=== PATIENT | male | born 1935 | race Caucasian/White ===

== ENCOUNTER 2018-12-30 07:19 | Day surgery (SDC) | payer MEDICARE, BC ==
[2018-12-30] MEDS ORDERED: Sodium Chloride 0.9% 1,000 ML IV SCH (08:00)
[2018-12-30] MEDS ORDERED: fentaNYL 100 MCG/2 ML SDV ONE (08:38)
[2018-12-30] MEDS ORDERED: Propofol 200 MG/20 ML SDV ONE (08:38)
[2018-12-30 11:09] VITALS: BP 148/98
--- NOTE | 2018-12-30 13:19 | OR ---
DATE OF PROCEDURE: 12/30/2018 SURGEON: Eliel Martinez MD PROCEDURE: Esophagogastroduodenoscopy. FINDINGS: Mild inflammation at the GE junction. COMPLICATIONS: None. INSURANCE CLAIMS ANALYST: None. ANESTHESIA: MAC. PREOPERATIVE DIAGNOSIS: Dysphagia. POSTOPERATIVE DIAGNOSIS: Dysphagia. RISKS: Risks, benefits, alternatives, and limitations including, but not limited to infection, bleeding, and perforation were explained to the patient, who wished to proceed. PROCEDURE IN DETAIL: The patient was placed in left lateral decubitus position. The EGD scope was introduced and advanced atraumatically into the second part of the duodenum. The scope was brought back in the stomach and no evidence of ulceration, no duodenal ulcers, and no gastritis. The GE junction showed some mild inflammation with a single tongue-like lesion consistent with probable reflux. This was biopsied at that location and in all 4 quadrants. The remainder of the esophagus was normal. The patient tolerated the procedure well. Eliel Martinez MD /[id number]
== END 2018-12-30 10:40 | disposition home or self-care (01) ==
LOC: JP.SDS 07:19
PROVIDERS: ATTEND Surgery
DX: K20.9 Esophagitis, unspecified (principal); I10 Essential (primary) hypertension; I25.10 Atherosclerotic heart disease of native coronary artery without angina pectoris; R00.1 Bradycardia, unspecified; E66.9 Obesity, unspecified; Z68.33 Body mass index [BMI] 33.0-33.9, adult; Z79.02 Long term (current) use of antithrombotics/antiplatelets; Z79.82 Long term (current) use of aspirin
CPT/HCPCS: 43239; J2704; J3010; J7030

== ENCOUNTER 2019-02-15 06:49 | Day surgery (SDC) | payer MEDICARE, BC ==
[2019-02-15] MEDS ORDERED: Sodium Chloride 0.9% 1,000 ML IV SCH (07:30)
[2019-02-15] MEDS ORDERED: Propofol 200 MG/20 ML SDV ONE (08:11)
[2019-02-15 10:27] VITALS: BP 159/97; PULSE 59
--- NOTE | 2019-02-15 11:44 | OR ---
DATE OF PROCEDURE: 02/15/2019 SURGEON: Eliel Martinez MD PROCEDURE: Esophagogastroduodenoscopy with dilation. FINDINGS: 1. Inflammation at the GE junction, which has worsened since last scope (biopsied using cold biopsy forceps x6). 2. Hiatal hernia, small. COMPLICATIONS: None. HABITAT CONSERVATION PLANNER: None. ANESTHESIA: MAC. INDICATIONS: This is a pleasant 83-year-old male, who is having some dysphagia and concerns for esophageal outflow obstruction. The patient was counseled in the clinic, and his medications were also changed with respect to his proton pump inhibitor. The patient had selected esophagogastroduodenoscopy with dilation to see if this helps with his dysphagia. We discussed risks, benefits, alternatives, and limitations including infection, bleeding, and perforation. PROCEDURE IN DETAIL: The patient was placed in left lateral decubitus position. The scope was introduced and advanced atraumatically to second part of the duodenum. No evidence of duodenal ulcer or any abnormalities. Within the stomach proper, no evidence of gastritis or ulceration. The hernia was noted. The GE junction had slightly mild increased inflammation, therefore this was biopsied in all 4 quadrants. 36-Montserratian balloon was used to dilate this also. The remainder of esophagus was normal. The patient tolerated the procedure well. Eliel Martinez MD /[id number]
== END 2019-02-15 09:25 | disposition home or self-care (01) ==
LOC: JP.SDS 06:49
PROVIDERS: ATTEND Surgery
DX: K20.9 Esophagitis, unspecified (principal); K44.9 Diaphragmatic hernia without obstruction or gangrene; I10 Essential (primary) hypertension; I25.2 Old myocardial infarction; I25.10 Atherosclerotic heart disease of native coronary artery without angina pectoris; K21.9 Gastro-esophageal reflux disease without esophagitis; M48.00 Spinal stenosis, site unspecified; C20 Malignant neoplasm of rectum
CPT/HCPCS: 43249; 88305; J2704; J7030

== ENCOUNTER 2019-02-28 16:34 | Inpatient (IN) | payer MEDICARE, BC ==
--- NOTE | 2019-02-28 16:42 | EDM.PDOC ---
ED HPI GENERAL MEDICAL PROBLEM - General Stated Complaint: FELL OFF LADDER,10 FT FALL Time Seen by Provider: 02/28/19 16:34 Source of Information: Reports: Patient History Limitations: Reports: No Limitations - History of Present Illness INITIAL COMMENTS - FREE TEXT/NARRATIVE: 83-year-old male came in by private car after falling 8-10 feet off of a ladder. The ladder fell sideways, and he landed hard on his left side on the ground. He sustained instant pain in the left upper arm, and the left hip area. It knocked the wind out of him and he had difficulty breathing for several minutes, but managed to catch his breath. He then made it to the car and drove into the hospital. On arrival he looked pale and diaphoretic, was having pleuritic pain with breathing so was brought back in as a trauma code. He had no loss of consciousness or head injury. An IV was started immediately. Onset: Sudden Duration: Hour(s): (Within the last hour) Location: Reports: Chest, Upper Extremity, Left, Lower Extremity, Left Quality: Reports: Ache, Stabbing Severity: Moderate Worsens with: Reports: Movement Associated Symptoms: Reports: Chest Pain, Diaphoresis, Malaise, Other ( Pleuritic pain with breathing on the left side in the shoulder). Denies: Confusion, Cough, Nausea/Vomiting, Weakness left side (shoulder and leg) Pain Score (Numeric/FACES): 6 - Related Data Allergies Allergy/AdvReac Type Severity Reaction Status Date / Time No Known Allergies Allergy Verified 02/15/19 07:38 Home Meds: Home Meds Amitriptyline [Elavil] 25 mg PO BEDTIME 06/16/14 [History] Aspirin [Adult Low Dose Aspirin EC] 81 mg PO DAILY 06/16/14 [History] Baclofen 10 mg PO BID 06/16/14 [History] Calcium Carbonate/Vitamin D3 [Oyster Shell 500 mg + Vit D] 1 tab PO DAILY [History] Gabapentin 600 mg PO BID 06/16/14 [History] Lisinopril [Prinivil] 5 mg PO DAILY 06/16/14 [History] Omeprazole [Prilosec] 40 mg PO DAILY 06/16/14 [History] Triamcinolone Acetonide [Triamcinolone Acetonide 0.1% Crm] 1 cm TOP TID PRN 11/23 [History] Zolpidem [Ambien] 10 mg PO BEDTIME 06/16/14 [History] Clopidogrel [Plavix] 75 mg PO DAILY 12/29/18 [History] Ipratropium [Atrovent 0.06% Nasal [place]] 2 spray REYNA TID 12/29/18 [History] Metoprolol Succinate [Toprol Xl] 25 mg PO DAILY 12/29/18 [History] Multivitamin [Multi-Day Vitamins] 1 each PO DAILY 12/29/18 [History] Vitamin B Complex [B Complex] 1 each PO DAILY 12/29/18 [History] Budesonide/Formoterol [Symbicort 160-4.5 MCG] 2 inh INH BID 02/11/19 [History] Cetirizine [ZyrTEC] 10 mg PO DAILY 02/11/19 [History] Glucosamine/D3/Boswellia Ciara [Osteo Bi-Flex Caplet] 2 each PO BID 02/11/19 [ History] Ubidecarenone [Co Q-10] 200 mg PO DAILY 02/11/19 [History] Hydrocodone/Acetaminophen [Brooks 5-325 Tablet] 1 each PO Q4HR PRN #30 tablet [Rx] Past Medical History HEENT History: Reports: Allergic Rhinitis, Cataract, Hard of Hearing, Impaired Vision Cardiovascular History: Reports: Hypertension, [place] Respiratory History: Reports: Sleep Apnea Gastrointestinal History: Reports: Colon Polyp, GERD Musculoskeletal History: Reports: Arthritis, Fracture Endocrine/Metabolic History: Reports: Obesity/BMI 30+ Hematologic History: Reports: Anticoagulation Therapy, Blood Transfusion(s) Oncologic (Cancer) History: Reports: Colon, Other (See Below) Other Oncologic History: rectal - Infectious Disease History Infectious Disease History: Reports: Chicken Pox, Measles, Mumps - Past Surgical History HEENT Surgical History: Reports: Cataract Surgery, Tonsillectomy Cardiovascular Surgical History: Reports: Other (See Below) Other Cardiovascular Surgeries/Procedures: angioplasty Respiratory Surgical History: Reports: None GI Surgical History: Reports: Appendectomy, Colonoscopy, Other (See Below) Other GI Surgeries/Procedures: rectal cancer 5 years ago with low rectal surgery Endocrine Surgical History: Reports: None Musculoskeletal Surgical History: Reports: Arthroscopic Knee, Hip Replacement, Knee Replacement Oncologic Surgical History: Reports: Other (See Below) Other Oncologic Surgeries/Procedures: rectal surgery Social & Family History - Caffeine Use Caffeine Use: Reports: Coffee Review of Systems - Review of Systems Review Of Systems: See Below Constitutional: Denies: Fever Respiratory: Reports: Pleuritic Chest Pain. Denies: Shortness of Breath Cardiovascular: Reports: Chest Pain (Left upper chest area) Musculoskeletal: Reports: Arm Pain (Left upper arm pain) Skin: Denies: Bruising Neurological: Denies: Dizziness, Headache Psychiatric: Reports: No Symptoms ED EXAM, GENERAL - Physical Exam Exam: See Below Free Text/Narrative:: Primary assessment was normal, oxygen was normal, lungs clear, neuro intact and blood pressure and pulse normal. Exam Limited By: No Limitations General Appearance: Alert, Moderate Distress Eye Exam: Bilateral Eye: Normal Inspection Head: Atraumatic Neck: Supple, Non-Tender Respiratory/Chest: Lungs Clear Cardiovascular: Regular Rate, Rhythm, Other (Distant heart sounds) GI/Abdominal: Soft, Non-Tender Extremities: Other (Significant tenderness to palpation of the left upper arm and shoulder, clavicle nontender, elbow nontender area also pain with internal or external rotation of the left hip compared to the right but no shortening or rotation of the left leg.) Neurological: Alert, Oriented Psychiatric: Anxious Skin Exam: Warm, Dry Course - Vital Signs Last Recorded V/S: Last Vital Signs Temp 98.2 F 03/02/19 08:26 Pulse 86 03/02/19 08:26 Resp 18 03/02/19 08:26 BP 118/70 03/02/19 08:26 Pulse Ox 95 03/02/19 08:26 - Orders/Labs/Meds Labs: Laboratory Tests 02/28/19 02/28/19 Range/Units 16:40 16:40 WBC 7.7 (4.5-11.0) K/uL RBC 4.75 (4.30-5.90) M/uL Hgb 15.3 H D (12.0-15.0) g/dL Hct 45.9 (40.0-54.0) % MCV 97 (80-98) fL MCH 32 H (27-31) pg MCHC 33 (32-36) % Plt Count 137 L (150-400) K/uL Neut % (Auto) 53 (36-66) % Lymph % (Auto) 40 (24-44) % Leslie % (Auto) 6 (2-6) % Eos % (Auto) 1 L (2-4) % Baso % (Auto) 0 (0-1) % Sodium 141 (140-148) mmol/L Potassium 4.2 (3.6-5.2) mmol/L Chloride 106 (100-108) mmol/L Carbon Dioxide 24 (21-32) mmol/L Anion Gap 11.5 (5.0-14.0) mmol/L BUN 20 H (7-18) mg/dL Creatinine 1.2 (0.7-1.3) mg/dL Est Cr Clr Drug Dosing TNP Estimated GFR (MDRD) 58 L (>60) BUN/Creatinine Ratio Not Reportable Glucose 108 H (74-106) mg/dL Calcium 9.1 (8.5-10.1) mg/dL Total Bilirubin 0.3 D (0.2-1.0) mg/dL AST 30 (15-37) U/L ALT 41 (12-78) U/L Alkaline Phosphatase 85 (46-116) U/L Total Protein 6.9 (6.4-8.2) g/dL Albumin 3.5 (3.4-5.0) g/dL Globulin 3.4 (2.3-3.5) g/dL Albumin/Globulin Ratio 1.0 L (1.2-2.2) Meds: Medications Discontinued Medications Generic Name Dose Route Start Last Admin Trade Name Freq PRN Reason Stop Dose Admin Acetaminophen 650 mg 02/28/19 19:53 Tylenol PO Q4H PRN Pain (Mild 1-3)/fever Hydrocodone Bitart/Acetaminophen 1 tab 02/28/19 19:53 03/02/19 09:24 Brooks 325-5 Mg PO 1 tab Q4H PRN Administration Pain Albuterol 2.5 mg 02/28/19 19:53 Proventil Neb Soln NEB Q4H PRN Shortness Of Breath/wheezing Amitriptyline HCl 25 mg 02/28/19 21:00 03/01/19 21:02 Elavil PO 25 mg BEDTIME CICI Administration Aspirin 81 mg 03/01/19 09:00 03/02/19 11:12 Halfprin PO Not Given DAILY CICI Baclofen 10 mg 02/28/19 21:00 03/02/19 11:12 Lioresal PO Not Given BID CICI Cetirizine HCl 10 mg 03/01/19 09:00 03/02/19 11:13 Zyrtec PO Not Given DAILY [facility] Clopidogrel Bisulfate 75 mg 03/01/19 09:00 03/02/19 11:12 Plavix PO Not Given DAILY [facility] Enoxaparin Sodium 40 mg 03/01/19 09:00 03/02/19 11:12 Lovenox SUBCUT Not Given DAILY [facility] Gabapentin 600 mg 02/28/19 21:00 03/02/19 11:12 Neurontin PO Not Given BID CICI Sodium Chloride 1,000 mls @ 500 mls/hr 02/28/19 16:45 02/28/19 17:30 Normal Saline IV 500 mls/hr ASDIRECTED CIIC Administration Sodium Chloride 80 mls @ 3 mls/sec 02/28/19 17:00 02/28/19 17:16 Normal Saline IV 02/28/19 18:00 3 mls/sec ASDIRECTED CICI Administration Sodium Chloride 1,000 mls @ 125 mls/hr 02/28/19 19:53 03/01/19 14:01 Normal Saline IV 125 mls/hr ASDIRECTED CICI Administration Iopamidol 100 ml 02/28/19 17:00 02/28/19 17:17 Isovue-300 (61%) IV 02/28/19 18:00 100 ml . DIRECTED CICI Administration Ipratropium Keyser 0 ml 02/28/19 21:00 03/02/19 09:08 Atrovent 0.06% Nasal [place] REYNA Not Given TID [facility] Lisinopril 5 mg 03/01/19 09:00 03/02/19 11:12 Prinivil PO Not Given DAILY [facility] Metoprolol Succinate 25 mg 03/01/19 09:00 03/02/19 11:13 Toprol Xl PO Not Given DAILY [facility] Ondansetron HCl 4 mg 02/28/19 19:53 Zofran IV Q4H PRN Nausea/Vomiting Pantoprazole Sodium 40 mg 03/01/19 07:30 03/02/19 09:08 Protonix PO Not Given ACBREAKFAST [facility] Polyethylene Glycol 17 gm 02/28/19 19:53 Miralax PO DAILY PRN Constipation Fluticasone/Salmeterol 0 puff 02/28/19 21:00 02/28/19 21:14 Fluticasone-Salmeterol 232-14 Mcg Powder Inha INH Not Given BID CICI Fluticasone/Salmeterol 0 puff 03/01/19 07:30 03/02/19 07:19 Fluticasone-Salmeterol 232-14 Mcg Powder Inha INH 1 puff BIDRT CICI Administration Senna/Docusate Sodium 1 tab 02/28/19 21:00 03/02/19 11:12 Senna Plus PO Not Given BID CICI Sodium Chloride 10 ml 02/28/19 16:52 02/28/19 17:16 Saline Flush FLUSH 02/28/19 16:53 10 ml ONETIME ONE Administration Sodium Chloride 10 ml 02/28/19 19:53 Saline Flush FLUSH ASDIRECTED PRN Keep Vein Open Zolpidem Tartrate 10 mg 02/28/19 21:00 03/01/19 22:57 Ambien PO 10 mg BEDTIME CICI Administration - Re-Assessments/Exams Free Text/Narrative Re-Assessment/Exam: 02/28/19 17:43 Patient declined any pain control initially. Ultrasound of the abdomen showed no fluid or obvious abnormality. CBC CMP were obtained and the patient was sent back for a chest abdomen pelvis CT scan with IV contrast, trauma protocol after his creatinine returned 1.1. 02/28/19 18:24 Labs were reassuring, CBC showed a normal white count and hemoglobin. LFTs were normal. CT scan confirmed a pelvic ramus fracture, but no other acute abnormalities of the chest and pelvis. A left shoulder immobilizer was applied and the patient tried to stand and move to a chair and became very uncomfortable , pale unsteady so agreed to be in the hospital for the next day or 2 for observation. Departure - Departure Time of Disposition: 19:41 Disposition: Admitted As Inpatient 65 Clinical Impression: Closed left humeral fracture Qualifiers: Encounter type: initial encounter Humerus Location: surgical neck Fracture morphology: unspecified fracture morphology Fracture alignment: displaced Qualified Code(s): S42.212A - Unspecified displaced fracture of surgical neck of left humerus, initial encounter for closed fracture Closed fracture of single pubic ramus of pelvis Qualifiers: Encounter type: initial encounter Laterality: left Qualified Code(s): S32.592A - Other specified fracture of left pubis, initial encounter for closed fracture - Discharge Information
[2019-02-28] MEDS ORDERED: Sodium Chloride 0.9% 1,000 ML IV SCH (16:45)
[2019-02-28] MEDS ORDERED: Sodium Chloride 0.9% 10 ML Syringe FLUSH ONE (16:52)
[2019-02-28] MEDS ORDERED: Sodium Chloride 0.9% 80 ML IV SCH (17:00)
[2019-02-28] MEDS ORDERED: Iopamidol 612 MG/ML 100 ML Bottle IV SCH (17:00)
--- NOTE | 2019-02-28 17:31 | CRLCR ---
INDICATION: Fall, humerus pain TECHNIQUE: Humerus radiograph 1 view left COMPARISON: None FINDINGS: Bone: There is a comminuted, mildly displaced fracture of the surgical neck of the left humerus. The distal fragment is displaced laterally by 1 cm. Joint: The visualized glenohumeral and elbow joints are unremarkable, but the elbow joint is not profiled. If there is pain or tenderness in this region, dedicated views of the elbow are recommended. Soft tissue: The visualized hemithorax and soft tissues are unremarkable in appearance. No radiopaque foreign bodies are seen. IMPRESSIONS: 1. There is a comminuted, mildly displaced fracture of the surgical neck of the left humerus. 2. Complete radiographic assessment will require at least an additional orthogonal view. Dictated by Keron Goodman MD @ 02/28/2019 5:29:04 PM Dictated by: Keron Goodman MD @ 02/28/2019 17:29:07 (Electronically Signed)
--- NOTE | 2019-02-28 18:22 | CRLCT ---
HISTORY: Fall. Pain. TECHNIQUE: CT chest, abdomen, and pelvis with IV contrast. COMPARISON: None. FINDINGS: Chest: Lungs: Central airways are patent. No consolidation or edema. Minimal dependent atelectasis in the right lung. Minimal atelectasis in the paramediastinal left lower lobe. 5 mm noncalcified pulmonary nodule in the left lower lobe along the major fissure (series 3 image 53). No pleural effusion or pneumothorax. Mediastinum: Moderate aortic atherosclerosis. Ascending thoracic aorta is mildly dilated to 3.8 cm. No pericardial effusion. Lymph nodes: No enlarged lymph nodes. --- Abdomen: No liver lesions. No bile duct dilation. No pancreatic mass or pancreatic duct dilation. No acute pancreatic injury. Subcentimeter hypodense lesion in the inferior spleen is too small to characterize. No acute spleen injury. No adrenal nodules. Kidneys enhance symmetrically. No renal mass. No acute renal parenchymal injury. No hydronephrosis. No dilated bowel. Mild colonic diverticulosis. No free fluid. No free intraperitoneal gas. No lymphadenopathy. Moderate atherosclerosis. Abdominal aorta is normal caliber. Pelvis: Partially obscured by artifact from bilateral hip arthroplasty hardware. No lymphadenopathy. --- Musculoskeletal: Degenerative arthrosis of both sternoclavicular joints. Degenerative changes of the spine. Nondisplaced acute fracture of the left inferior pubic ramus. Nondisplaced fracture at the junction of the left superior pubic ramus and anterior acetabulum. Total hip arthroplasty bilaterally. IMPRESSION: 1. Nondisplaced acute fractures of the left inferior pubic ramus and at the junction of the left superior pubic ramus and anterior acetabulum. 2. No acute abnormality in the chest, abdomen, or pelvis otherwise. 3. 5 mm pulmonary nodule in the left lower lobe. If patient is at high risk for malignancy consider follow-up chest CT in 12 months. Dictated by Mykel Rangel MD @ 02/28/2019 6:19:19 PM Please note that all CT scans at this facility use dose modulation, iterative reconstruction, and/or weight-based dosing when appropriate to reduce radiation dose to as low as reasonably achievable. Dictated by: Mykel Rangel MD @ 02/28/2019 18:19:26 (Electronically Signed)
--- NOTE | 2019-02-28 18:58 | PCM.HP.2 ---
H&P History of Present Illness - General Date of Service: 02/28/19 Admit Problem/Dx: Admission Diagnosis/Problem Admission Diagnosis/Problem Fracture of proximal humerus Source of Information: Patient, Family, Provider, RN Notes Reviewed History Limitations: Reports: No Limitations - History of Present Illness Initial Comments - Free Text/Narative: Mr. Ascencio is an 83-year-old gentleman who was admitted through the emergency department with left arm and hip pain following a fall of 10 feet off of a ladder. He was feeling well prior to the fall and was able to drive himself into the hospital. On evaluation he is found to have a proximal fracture of his left humerus, mildly displaced. As well as a fracture of his left inferior pubic rami. Because of the combination of the 2 fractures she is unsafe for discharge and will be admitted to the hospital for further evaluation and management. - Related Data Allergies/Adverse Reactions: Allergies Allergy/AdvReac Type Severity Reaction Status Date / Time No Known Allergies Allergy Verified 02/15/19 07:38 Home Medications: Home Meds Amitriptyline [Elavil] 25 mg PO BEDTIME 06/16/14 [History] Aspirin [Adult Low Dose Aspirin EC] 81 mg PO DAILY 06/16/14 [History] Baclofen 10 mg PO BID 06/16/14 [History] Calcium Carbonate/Vitamin D3 [Oyster Shell 500 mg + Vit D] 1 tab PO DAILY [History] Gabapentin 600 mg PO BID 06/16/14 [History] Lisinopril [Prinivil] 5 mg PO DAILY 06/16/14 [History] Omeprazole [Prilosec] 40 mg PO DAILY 06/16/14 [History] Triamcinolone Acetonide [Triamcinolone Acetonide 0.1% Crm] 1 cm TOP TID PRN 11/23 [History] Zolpidem [Ambien] 10 mg PO BEDTIME 06/16/14 [History] Clopidogrel [Plavix] 75 mg PO DAILY 12/29/18 [History] Ipratropium [Atrovent 0.06% Nasal [place]] 2 spray REYNA TID 12/29/18 [History] Metoprolol Succinate [Toprol Xl] 25 mg PO DAILY 12/29/18 [History] Multivitamin [Multi-Day Vitamins] 1 each PO DAILY 12/29/18 [History] Vitamin B Complex [B Complex] 1 each PO DAILY 12/29/18 [History] Budesonide/Formoterol [Symbicort 160-4.5 MCG] 2 inh INH BID 02/11/19 [History] Cetirizine [ZyrTEC] 10 mg PO DAILY 02/11/19 [History] Glucosamine/D3/Boswellia Ciara [Osteo Bi-Flex Caplet] 2 each PO DAILY 02/11/19 [ History] Hydrocodone/Acetaminophen [Drasco 5-325 Tablet] 1 each PO Q4HR PRN 02/11/19 [ History] Ubidecarenone [Co Q-10] 200 mg PO DAILY 02/11/19 [History] Past Medical History HEENT History: Reports: Allergic Rhinitis, Cataract, Hard of Hearing, Impaired Vision Cardiovascular History: Reports: Hypertension, [place] Respiratory History: Reports: Sleep Apnea Gastrointestinal History: Reports: Colon Polyp, GERD Musculoskeletal History: Reports: Arthritis, Fracture Endocrine/Metabolic History: Reports: Obesity/BMI 30+ Hematologic History: Reports: Anticoagulation Therapy, Blood Transfusion(s) Oncologic (Cancer) History: Reports: Colon, Other (See Below) Other Oncologic History: rectal - Infectious Disease History Infectious Disease History: Reports: Chicken Pox, Measles, Mumps - Past Surgical History HEENT Surgical History: Reports: Cataract Surgery, Tonsillectomy Cardiovascular Surgical History: Reports: Other (See Below) Other Cardiovascular Surgeries/Procedures: angioplasty Respiratory Surgical History: Reports: None GI Surgical History: Reports: Appendectomy, Colonoscopy, Other (See Below) Other GI Surgeries/Procedures: rectal cancer 5 years ago with low rectal surgery Endocrine Surgical History: Reports: None Musculoskeletal Surgical History: Reports: Arthroscopic Knee, Hip Replacement, Knee Replacement Oncologic Surgical History: Reports: Other (See Below) Other Oncologic Surgeries/Procedures: rectal surgery Social & Family History - Tobacco Use Smoking Status *Q: Never Smoker - Caffeine Use Caffeine Use: Reports: Coffee H&P Review of Systems - Review of Systems: Review Of Systems: See Below General: Reports: No Symptoms HEENT: Reports: No Symptoms Pulmonary: Reports: No Symptoms Cardiovascular: Reports: No Symptoms Gastrointestinal: Reports: No Symptoms Genitourinary: Reports: No Symptoms Musculoskeletal: Reports: Arm Pain, Other (Pelvic pain) Skin: Reports: No Symptoms Psychiatric: Reports: No Symptoms Neurological: Reports: No Symptoms Hematologic/Lymphatic: Reports: No Symptoms Immunologic: Reports: No Symptoms Exam - Exam Exam: See Below - Vital Signs Vital Signs: Last Vital Signs Temp 96.8 F 02/28/19 16:34 Pulse 89 02/28/19 18:39 Resp 19 02/28/19 17:25 BP 139/72 02/28/19 18:39 Pulse Ox 94 L 02/28/19 18:39 Weight: 212 lb - Exam General: Alert, Oriented, Cooperative, Moderate Distress HEENT: Conjunctiva Clear, Hearing Intact, Mucosa Moist & [place], Normal Nasal Septum, Posterior Pharynx Clear Neck: Supple, Trachea Midline, +2 Carotid Pulse wo Bruit Lungs: Clear to Auscultation, Normal Respiratory Effort Cardiovascular: Regular Rate, Regular Rhythm, Normal S1, Normal S2. No: Systolic Murmur, Diastolic Murmur GI/Abdominal Exam: Soft, Non-Tender, No Organomegaly, No Distention Extremities: Arm Pain (Left upper extremity is in a shoulder immobilizer), Other (Left pelvic pain) Skin: Warm, Dry, Intact Neurological: Cranial Nerves Intact, Strength Equal Bilateral, Normal Speech, Normal Tone, Sensation Intact. No: Focal Deficit Neuro Extensive - Mental Status: Alert, Oriented x3, Normal Mood/Affect, Normal Cognition, Memory Intact - Patient Data Lab Results Last 24 hrs: Laboratory Results - last 24 hr 02/28/19 02/28/19 Range/Units 16:40 16:40 WBC 7.7 (4.5-11.0) K/uL RBC 4.75 (4.30-5.90) M/uL Hgb 15.3 H D (12.0-15.0) g/dL Hct 45.9 (40.0-54.0) % MCV 97 (80-98) fL MCH 32 H (27-31) pg MCHC 33 (32-36) % Plt Count 137 L (150-400) K/uL Neut % (Auto) 53 (36-66) % Lymph % (Auto) 40 (24-44) % [place] % (Auto) 6 (2-6) % Eos % (Auto) 1 L (2-4) % Baso % (Auto) 0 (0-1) % Sodium 141 (140-148) mmol/L Potassium 4.2 (3.6-5.2) mmol/L Chloride 106 (100-108) mmol/L Carbon Dioxide 24 (21-32) mmol/L Anion Gap 11.5 (5.0-14.0) mmol/L BUN 20 H (7-18) mg/dL Creatinine 1.2 (0.7-1.3) mg/dL Est Cr Clr Drug Dosing TNP Estimated GFR (MDRD) 58 L (>60) BUN/Creatinine Ratio Not Reportable Glucose 108 H (74-106) mg/dL Calcium 9.1 (8.5-10.1) mg/dL Total Bilirubin 0.3 D (0.2-1.0) mg/dL AST 30 (15-37) U/L ALT 41 (12-78) U/L Alkaline Phosphatase 85 (46-116) U/L Total Protein 6.9 (6.4-8.2) g/dL Albumin 3.5 (3.4-5.0) g/dL Globulin 3.4 (2.3-3.5) g/dL Albumin/Globulin Ratio 1.0 L (1.2-2.2) Result Diagrams: 02/28/19 16:40 02/28/19 16:40 *Q Meaningful Use (ADM) - VTE Risk Assess *Q Each Risk Factor Represents 1 Point: Obesity ( BMI > 25 kg/m2) Total Score 1 Point Risk Factors: 1 Each Risk Factor Represents 2 Points: None Total Score 2 Point Risk Factors: 0 Each Risk Factor Represents 3 Points: Age 75 Years or Greater Total Score 3 Point Risk Factors: 3 Each Risk Factor Represents 5 Points: Hip, Pelvis or Leg Fracture, Less than 1 month Total Score 5 Point Risk Factors: 5 Venous Thromboembolism Risk Factor Score *Q: 9 Problem List Initiated/Reviewed/Updated: Yes Orders Last 24hrs: Active Orders 24 hr Category Date Time Status Patient Status Manage Transfer [TRANSFER] Routine ADT 02/28/19 18:48 Ordered Sodium Chloride 0.9% [Normal Saline] 1,000 ml Med 02/28/19 16:45 Active IV ASDIRECTED Resuscitation Status Routine Resus Stat 02/28/19 18:52 Ordered Medication Orders Sodium Chloride (Normal Saline) 1,000 mls @ 500 mls/hr IV ASDIRECTED [facility] Last Admin: 02/28/19 17:30 Dose: 500 mls/hr Assessment/Plan Comment:: ASSESSMENT AND PLAN LEFT PROXIMAL HUMERUS FRACTURE-experience from a fall earlier today. No indication for surgical intervention. -Pain medication as needed -Outpatient follow-up with orthopedic surgery -Will likely require long term placement LEFT INFERIOR PUBIC RAMI FRACTURE -Management as above MAINTENANCE ISSUES -DVT prophylaxis; Lovenox 40 mg subcutaneous daily -GI prophylaxis; continue outpatient PPI therapy -[place] catheter; not indicated -Nutrition; 2 g sodium diet -Nicotine dependence; not required CODE STATUS-FULL CODE ADMISSION STATUS-patient will be admitted to inpatient status, expect at least a 2 night hospital stay for evaluation and management of problems as outlined above. At the time of this admission I do not reasonably expected evaluation and management of this problem will require more than a 96 hour hospital stay. DISPOSITION-anticipate discharge to home after the hospital stay. PRIMARY CARE PROVIDER- - Mortality Measure Prognosis:: Good
[2019-02-28] MEDS ORDERED: Polyethylene Glycol 3350 Powder 17 GM Packet PO PRN (19:53)
[2019-02-28] MEDS ORDERED: Sodium Chloride 0.9% 10 ML Syringe FLUSH PRN (19:53)
[2019-02-28] MEDS ORDERED: Acetaminophen 325 MG Tab PO PRN (19:53)
[2019-02-28] MEDS ORDERED: Ondansetron 4 MG/2 ML SDV IV PRN (19:53)
[2019-02-28] MEDS ORDERED: Albuterol 0.083% 2.5 MG/3 ML Neb Soln NEB PRN (19:53)
[2019-02-28] MEDS ORDERED: Fluticasone-Salmeterol 232-14 MCG Powder Inhalent INH SCH (21:00)
[2019-02-28] MEDS: Sodium Chloride 0.9% 1,000 ML IV SCH (21:08)
[2019-02-28] MEDS: Acetaminophen/HYDROcodone 325-5 MG Tab PO PRN (21:13)
[2019-02-28] MEDS: Baclofen 10 MG Tab PO SCH (21:13)
[2019-02-28] MEDS: Gabapentin 300 MG Cap PO SCH (21:13)
[2019-02-28] MEDS: Ipratropium 0.06% Nasal Spray 15 ML Bottle NAS SCH (21:14)
[2019-02-28] MEDS: Amitriptyline 25 MG Tab PO SCH (21:15)
[2019-02-28] MEDS: Zolpidem 5 MG Tab PO SCH (23:09)
[2019-03-01] MEDS: Sodium Chloride 0.9% 1,000 ML IV SCH ×2 (05:12→14:01)
[2019-03-01] MEDS: Acetaminophen/HYDROcodone 325-5 MG Tab PO PRN ×4 (05:23→21:08)
[2019-03-01] MEDS: Fluticasone-Salmeterol 232-14 MCG Powder Inhalent INH SCH ×2 (08:24→21:02)
[2019-03-01] MEDS: Enoxaparin 40 MG/0.4 ML Syringe SUBCUT SCH (09:07)
[2019-03-01] MEDS: Metoprolol Succinate 25 MG Tab.ER PO SCH (09:07)
[2019-03-01] MEDS: Pantoprazole 40 MG Tab.CR PO SCH (09:10)
[2019-03-01] MEDS: Aspirin 81 MG Tab.EC PO SCH (09:10)
[2019-03-01] MEDS: Gabapentin 300 MG Cap PO SCH ×2 (09:10→21:01)
[2019-03-01] MEDS: Baclofen 10 MG Tab PO SCH ×2 (09:10→21:01)
[2019-03-01] MEDS: Lisinopril 5 MG Tab PO SCH (09:11)
[2019-03-01] MEDS: Ipratropium 0.06% Nasal Spray 15 ML Bottle NAS SCH ×3 (09:11→21:01)
[2019-03-01] MEDS: Cetirizine 10 MG Tab PO SCH (09:11)
[2019-03-01] MEDS: Clopidogrel 75 MG Tab PO SCH (09:11)
--- NOTE | 2019-03-01 14:46 | PCM.PN ---
- General Info Date of Service: 03/01/19 Subjective Update: Mr. Richards done well since admission, with assistance he is able to get up out of the chair and ambulate short distances. He is adamant about not going to the [place] [facility], plans to go home with his daughter tomorrow. Functional Status: Reports: Tolerating Diet, Ambulating - Review of Systems General: Reports: Weakness. Denies: Fever, Chills Pulmonary: Reports: No Symptoms Cardiovascular: Reports: No Symptoms Gastrointestinal: Reports: No Symptoms Musculoskeletal: Reports: Other (pain left arm and left pelvis) - Patient Data Vitals - Most Recent: Last Vital Signs Temp 98.7 F 03/01/19 12:06 Pulse 89 03/01/19 12:06 Resp 16 03/01/19 12:06 BP 115/71 03/01/19 12:06 Pulse Ox 92 L 03/01/19 12:06 Weight - Most Recent: 212 lb 15.994 oz I&O - Last 24 Hours: Intake & Output 02/28/19 03/01/19 03/01/19 22:59 06:59 14:59 Intake Total 500 1343 240 Output Total 200 675 Balance 300 668 240 Lab Results Last 24 Hours: Laboratory Results - last 24 hr 02/28/19 02/28/19 03/01/19 Range/Units 16:40 16:40 04:50 WBC 7.7 5.1 (4.5-11.0) K/uL RBC 4.75 3.93 L (4.30-5.90) M/uL Hgb 15.3 H D 12.6 D (12.0-15.0) g/dL Hct 45.9 38.7 L (40.0-54.0) % MCV 97 99 H (80-98) fL MCH 32 H 32 H (27-31) pg MCHC 33 33 (32-36) % Plt Count 137 L 150 (150-400) K/uL Neut % (Auto) 53 66 (36-66) % Lymph % (Auto) 40 22 L (24-44) % [place] % (Auto) 6 12 H (2-6) % Eos % (Auto) 1 L 0 L (2-4) % Baso % (Auto) 0 0 (0-1) % Sodium 141 (140-148) mmol/L Potassium 4.2 (3.6-5.2) mmol/L Chloride 106 (100-108) mmol/L Carbon Dioxide 24 (21-32) mmol/L Anion Gap 11.5 (5.0-14.0) mmol/L BUN 20 H (7-18) mg/dL Creatinine 1.2 (0.7-1.3) mg/dL Est Cr Clr Drug Dosing TNP Estimated GFR (MDRD) 58 L (>60) BUN/Creatinine Ratio Not Reportable Glucose 108 H (74-106) mg/dL Calcium 9.1 (8.5-10.1) mg/dL Total Bilirubin 0.3 D (0.2-1.0) mg/dL AST 30 (15-37) U/L ALT 41 (12-78) U/L Alkaline Phosphatase 85 (46-116) U/L Total Protein 6.9 (6.4-8.2) g/dL Albumin 3.5 (3.4-5.0) g/dL Globulin 3.4 (2.3-3.5) g/dL Albumin/Globulin Ratio 1.0 L (1.2-2.2) 03/01/19 Range/Units 04:50 WBC (4.5-11.0) K/uL RBC (4.30-5.90) M/uL Hgb (12.0-15.0) g/dL Hct (40.0-54.0) % MCV (80-98) fL MCH (27-31) pg MCHC (32-36) % Plt Count (150-400) K/uL Neut % (Auto) (36-66) % Lymph % (Auto) (24-44) % [place] % (Auto) (2-6) % Eos % (Auto) (2-4) % Baso % (Auto) (0-1) % Sodium 140 (140-148) mmol/L Potassium 4.2 (3.6-5.2) mmol/L Chloride 106 (100-108) mmol/L Carbon Dioxide 24 (21-32) mmol/L Anion Gap 9.7 (5.0-14.0) mmol/L BUN 17 (7-18) mg/dL Creatinine 1.1 (0.7-1.3) mg/dL Est Cr Clr Drug Dosing 45.11 Estimated GFR (MDRD) > 60 (>60) BUN/Creatinine Ratio Glucose 116 H (74-106) mg/dL Calcium 8.5 (8.5-10.1) mg/dL Total Bilirubin (0.2-1.0) mg/dL AST (15-37) U/L ALT (12-78) U/L Alkaline Phosphatase (46-116) U/L Total Protein (6.4-8.2) g/dL Albumin (3.4-5.0) g/dL Globulin (2.3-3.5) g/dL Albumin/Globulin Ratio (1.2-2.2) Med Orders - Current: Current Medications Acetaminophen (Tylenol) 650 mg PO Q4H PRN PRN Reason: Pain (Mild 1-3)/fever Hydrocodone Bitart/Acetaminophen ([place] 325-5 Mg) 1 tab PO Q4H PRN PRN Reason: Pain Last Admin: 03/01/19 09:16 Dose: 1 tab Albuterol (Proventil Neb Soln) 2.5 mg NEB Q4H PRN PRN Reason: Shortness Of Breath/wheezing Amitriptyline HCl (Elavil) 25 mg PO BEDTIME [facility] Last Admin: 02/28/19 21:15 Dose: Not Given Aspirin (Halfprin) 81 mg PO DAILY [facility] Last Admin: 03/01/19 09:10 Dose: 81 mg Baclofen (Lioresal) 10 mg PO BID [facility] Last Admin: 03/01/19 09:10 Dose: 10 mg Cetirizine HCl (Zyrtec) 10 mg PO DAILY [facility] Last Admin: 03/01/19 09:11 Dose: 10 mg Clopidogrel Bisulfate (Plavix) 75 mg PO DAILY [facility] Last Admin: 03/01/19 09:11 Dose: 75 mg Enoxaparin Sodium (Lovenox) 40 mg SUBCUT DAILY [facility] Last Admin: 03/01/19 09:07 Dose: 40 mg Gabapentin (Neurontin) 600 mg PO BID [facility] Last Admin: 03/01/19 09:10 Dose: 600 mg Ipratropium [place] (Atrovent 0.06% Nasal [place]) 0 ml REYNA TID [facility] Last Admin: 03/01/19 14:00 Dose: Not Given Lisinopril (Prinivil) 5 mg PO DAILY [facility] Last Admin: 03/01/19 09:11 Dose: 5 mg Metoprolol Succinate (Toprol Xl) 25 mg PO DAILY [facility] Last Admin: 03/01/19 09:07 Dose: 25 mg Ondansetron HCl (Zofran) 4 mg IV Q4H PRN PRN Reason: Nausea/Vomiting Pantoprazole Sodium (Protonix) 40 mg PO ACBREAKFAST [facility] Last Admin: 03/01/19 09:10 Dose: 40 mg Polyethylene Glycol (Miralax) 17 gm PO DAILY PRN PRN Reason: Constipation Fluticasone/Salmeterol (Fluticasone-Salmeterol 232-14 Mcg Powder [place]) 0 puff INH BIDRT [facility] Last Admin: 03/01/19 08:24 Dose: 1 puff Senna/Docusate Sodium (Senna Plus) 1 tab PO BID [facility] Last Admin: 03/01/19 09:10 Dose: 1 tab Sodium Chloride (Saline Flush) 10 ml FLUSH ASDIRECTED PRN PRN Reason: Keep Vein Open Zolpidem Tartrate (Ambien) 10 mg PO BEDTIME [facility] Last Admin: 02/28/19 23:09 Dose: 10 mg Discontinued Medications Sodium Chloride (Normal Saline) 1,000 mls @ 500 mls/hr IV ASDIRECTED [facility] Last Admin: 02/28/19 17:30 Dose: 500 mls/hr Sodium Chloride (Normal Saline) 80 mls @ 3 mls/sec IV ASDIRECTED [facility] Stop: 02/28/19 18:00 Last Admin: 02/28/19 17:16 Dose: 3 mls/sec Sodium Chloride (Normal Saline) 1,000 mls @ 125 mls/hr IV ASDIRECTED [facility] Last Admin: 03/01/19 14:01 Dose: 125 mls/hr Iopamidol (Isovue-300 (61%)) 100 ml IV . DIRECTED [facility] Stop: 02/28/19 18:00 Last Admin: 02/28/19 17:17 Dose: 100 ml Fluticasone/Salmeterol (Fluticasone-Salmeterol 232-14 Mcg Powder [place]ha) 0 puff INH BID [facility] Last Admin: 02/28/19 21:14 Dose: Not Given Sodium Chloride (Saline Flush) 10 ml FLUSH ONETIME ONE Stop: 02/28/19 16:53 Last Admin: 02/28/19 17:16 Dose: 10 ml - Exam Quality Assessment: DVT Prophylaxis General: Alert, Oriented, Cooperative, Moderate Distress Lungs: Clear to Auscultation, Normal Respiratory Effort Cardiovascular: Regular Rate, Regular Rhythm, No Murmurs GI/Abdominal Exam: Soft, Non-Tender, No Organomegaly, No Distention Extremities: Arm Pain, Other (left pelvic pain) - Problem List Review Problem List Initiated/Reviewed/Updated: Yes - My Orders Last 24 Hours: My Active Orders 02/28/19 18:52 Resuscitation Status Routine 02/28/19 19:53 Patient Status [ADT] Routine Ambulate [RC] QID Height and Weight [RC] 0500 Intake and Output [RC] QSHIFT Notify Provider Vital Signs [RC] ASDIRECTED Oxygen Therapy [RC] PRN RT Aerosol Therapy [RC] ASDIRECTED Up With Assistance [RC] ASDIRECTED Up to Chair [RC] QID VTE/DVT Education [RC] Per Unit Routine Vital Signs [RC] Q4H PT Evaluation and Treatment [CONS] Routine Acetaminophen [Tylenol] 650 mg PO Q4H PRN Acetaminophen/HYDROcodone [[place] 325-5 MG] 1 tab PO Q4H PRN Albuterol [Proventil Neb Soln] 2.5 mg NEB Q4H PRN Ondansetron [Zofran] 4 mg IV Q4H PRN Polyethylene Glycol 3350 [MiraLAX] 17 gm PO DAILY PRN Sodium Chloride 0.9% [Saline Flush] 10 ml FLUSH ASDIRECTED PRN Peripheral IV Insertion Adult [OM.PC] Routine 02/28/19 21:00 Amitriptyline [Elavil] 25 mg PO BEDTIME Baclofen [Lioresal] 10 mg PO BID Docusate Sodium/Sennosides [Senna Plus] 1 tab PO BID Gabapentin [Neurontin] 600 mg PO BID Ipratropium [Atrovent 0.06% Nasal [place]] 0 ml REYNA TID Zolpidem [Ambien] 10 mg PO BEDTIME 02/28/19 Dinner 2 Gram Sodium Diet [DIET] 03/01/19 07:30 Fluticasone/Salmeterol [Fluticasone-Salmeterol 232-14 MCG Powder Inha] 0 puff INH BIDRT Pantoprazole [ProTONIX] 40 mg PO ACBREAKFAST 03/01/19 09:00 Aspirin [Halfprin] 81 mg PO DAILY Cetirizine [ZyrTEC] 10 mg PO DAILY Clopidogrel [Plavix] 75 mg PO DAILY Enoxaparin [Lovenox] 40 mg SUBCUT DAILY Lisinopril [Prinivil] 5 mg PO DAILY Metoprolol Succinate [Toprol XL] 25 mg PO DAILY 03/01/19 14:40 Convert IV to Saline Lock [OM.PC] Routine - Plan Plan:: ASSESSMENT AND PLAN LEFT PROXIMAL HUMERUS FRACTURE-experience from a fall . No indication for surgical intervention. -Pain medication as needed -Outpatient follow-up with orthopedic surgery -ref[place] [facility] LEFT INFERIOR PUBIC RAMI FRACTURE -Management as above -weightbearing as tolerated MAINTENANCE ISSUES -DVT prophylaxis; Lovenox 40 mg subcutaneous daily -GI prophylaxis; continue outpatient PPI therapy -[place] catheter; not indicated -Nutrition; 2 g sodium diet -Nicotine dependence; not required CODE STATUS-FULL CODE ADMISSION STATUS-patient will be admitted to inpatient status, expect at least a 2 night hospital stay for evaluation and management of problems as outlined above. At the time of this admission I do not reasonably expected evaluation and management of this problem will require more than a 96 hour hospital stay. DISPOSITION-anticipate discharge to home after the hospital stay. PRIMARY CARE PROVIDER-
[2019-03-01] MEDS: Amitriptyline 25 MG Tab PO SCH (21:02)
[2019-03-01] MEDS: Zolpidem 5 MG Tab PO SCH (22:57)
[2019-03-02] MEDS: Fluticasone-Salmeterol 232-14 MCG Powder Inhalent INH SCH (07:19)
[2019-03-02 08:27] VITALS: BP 118/70
--- NOTE | 2019-03-02 09:01 | PCM.DCSUM1 ---
Discharge Summary - Hospital Course Brief History: Mr. Ascencio is an 83-year-old gentleman who was admitted through the emergency department with acute fractures of his left humerus and left inferior pubic ramus. - Discharge Data Discharge Date: 03/02/19 Discharge Disposition: Home, W Home Health Agency 06 Condition: Fair - Discharge Diagnosis/Problem(s) (1) Closed left humeral fracture SNOMED Code(s): 67663374 ICD Code: S42.302A - UNSP FRACTURE OF SHAFT OF HUMERUS, LEFT ARM, INIT Status: Acute Current Visit: Yes Qualifiers: Encounter type: initial encounter Humerus Location: surgical neck Fracture morphology: unspecified fracture morphology Fracture alignment: displaced Qualified Code(s): S42.212A - Unspecified displaced fracture of surgical neck of left humerus, initial encounter for closed fracture (2) Closed fracture of single pubic ramus of pelvis SNOMED Code(s): 810028555 ICD Code: S32.509A - UNSP FRACTURE OF UNSP PUBIS, INIT ENCNTR FOR CLOSED FRACTURE Status: Acute Current Visit: Yes Qualifiers: Encounter type: initial encounter Laterality: left Qualified Code(s): S32.592A - Other specified fracture of left pubis, initial encounter for closed fracture - Patient Summary/Data Consults: Consultations 02/28/19 19:53 PT Evaluation and Treatment [CONS] Routine Please Evaluate and Treat. PT Reason for Consult: Fracture left proximal humerus, left inferior pubic ramus This query below is only for informational purposes and is not editable. Hospital Course: Mr. Ascencio is an 83-year-old gentleman who was admitted through the emergency department with left arm and hip pain following a fall of 10 feet off of a ladder. He was feeling well prior to the fall and was able to drive himself into the hospital. On evaluation he is found to have a proximal fracture of his left humerus, mildly displaced. As well as a fracture of his left inferior pubic rami. Because of the combination of the 2 fractures he is unsafe for discharge and was admitted to the hospital for further evaluation and management. He was given IV fluids for hydration and pain medication as needed. He was seen daily by physical therapy during his hospital stay. He was encouraged to consider long-term placement which he refused. He was able to transfer with assistance and able to ambulate short distances prior to discharge. X-ray of the humerus fracture as well as CT scan of the pelvic fracture were reviewed and showed no evidence of requiring surgical intervention. He will be discharged home with his daughter with home care follow -up including home physical therapy. Follow-up appointment will be scheduled with his primary care provider within one week. Follow-up appointment will be scheduled with Dr. Canales for orthopedic consult in 2 weeks. He will keep the left arm in the shoulder immobilizer. He is able to weight bear as tolerated the pelvic fracture. He will resume his usual diet. - Patient Instructions Diet: Usual Diet as Tolerated Activity, Other: Keep left arm and shoulder immobilizer, may weight bear for walking as tole Other/Special Instructions: Please schedule follow-up appointment with primary care provider within one week. Please schedule outpatient orthopedic consult with Dr. Canales in 2 weeks. Please arrange for home care follow-up after discharge including home physical therapy and occupational therapy. - Discharge Plan *PRESCRIPTION DRUG MONITORING PROGRAM REVIEWED*: Not Applicable *COPY OF PRESCRIPTION DRUG MONITORING REPORT IN PATIENT TALI: Not Applicable Prescriptions/Med Rec: Hydrocodone/Acetaminophen [[place] 5-325 Tablet] 1 each PO Q4HR PRN #30 tablet PRN Reason: Pain Home Medications: Home Meds Amitriptyline [Elavil] 25 mg PO BEDTIME 06/16/14 [History] Aspirin [Adult Low Dose Aspirin EC] 81 mg PO DAILY 06/16/14 [History] Baclofen 10 mg PO BID 06/16/14 [History] Calcium Carbonate/Vitamin D3 [Oyster Shell 500 mg + Vit D] 1 tab PO DAILY [History] Gabapentin 600 mg PO BID 06/16/14 [History] Lisinopril [Prinivil] 5 mg PO DAILY 06/16/14 [History] Omeprazole [Prilosec] 40 mg PO DAILY 06/16/14 [History] Triamcinolone Acetonide [Triamcinolone Acetonide 0.1% Crm] 1 cm TOP TID PRN 11/23 [History] Zolpidem [Ambien] 10 mg PO BEDTIME 06/16/14 [History] Clopidogrel [Plavix] 75 mg PO DAILY 12/29/18 [History] Ipratropium [Atrovent 0.06% Nasal [place]] 2 spray REYNA TID 12/29/18 [History] Metoprolol Succinate [Toprol Xl] 25 mg PO DAILY 12/29/18 [History] Multivitamin [Multi-Day Vitamins] 1 each PO DAILY 12/29/18 [History] Vitamin B Complex [B Complex] 1 each PO DAILY 12/29/18 [History] Budesonide/Formoterol [Symbicort 160-4.5 MCG] 2 inh INH BID 02/11/19 [History] Cetirizine [ZyrTEC] 10 mg PO DAILY 02/11/19 [History] Glucosamine/D3/Boswellia Ciara [Osteo Bi-Flex Caplet] 2 each PO BID 02/11/19 [ History] Ubidecarenone [Co Q-10] 200 mg PO DAILY 02/11/19 [History] Hydrocodone/Acetaminophen [[place] 5-325 Tablet] 1 each PO Q4HR PRN #30 tablet [Rx] Referrals: PCP,None [Primary Care Provider] - - Discharge Summary/Plan Comment DC Time >30 min.: No - Patient Data Vitals - Most Recent: Last Vital Signs Temp 98.2 F 03/02/19 08:26 Pulse 86 03/02/19 08:26 Resp 18 03/02/19 08:26 BP 118/70 03/02/19 08:26 Pulse Ox 95 03/02/19 08:26 Weight - Most Recent: 212 lb 15.994 oz I&O - Last 24 hours: Intake & Output 03/01/19 03/02/19 03/02/19 22:59 06:59 14:59 Intake Total 2095 650 Output Total 550 Balance 1545 650 Med Orders - Current: Current Medications Acetaminophen (Tylenol) 650 mg PO Q4H PRN PRN Reason: Pain (Mild 1-3)/fever Hydrocodone Bitart/Acetaminophen ([place] 325-5 Mg) 1 tab PO Q4H PRN PRN Reason: Pain Last Admin: 03/01/19 21:08 Dose: 1 tab Albuterol (Proventil Neb Soln) 2.5 mg NEB Q4H PRN PRN Reason: Shortness Of Breath/wheezing Amitriptyline HCl (Elavil) 25 mg PO BEDTIME [facility] Last Admin: 03/01/19 21:02 Dose: 25 mg Aspirin (Halfprin) 81 mg PO DAILY [facility] Last Admin: 03/01/19 09:10 Dose: 81 mg Baclofen (Lioresal) 10 mg PO BID [facility] Last Admin: 03/01/19 21:01 Dose: 10 mg Cetirizine HCl (Zyrtec) 10 mg PO DAILY [facility] Last Admin: 03/01/19 09:11 Dose: 10 mg Clopidogrel Bisulfate (Plavix) 75 mg PO DAILY [facility] Last Admin: 03/01/19 09:11 Dose: 75 mg Enoxaparin Sodium (Lovenox) 40 mg SUBCUT DAILY [facility] Last Admin: 03/01/19 09:07 Dose: 40 mg Gabapentin (Neurontin) 600 mg PO BID [facility] Last Admin: 03/01/19 21:01 Dose: 600 mg Ipratropium [place] (Atrovent 0.06% Nasal [place]) 0 ml REYNA TID [facility] Last Admin: 03/01/19 21:01 Dose: Not Given Lisinopril (Prinivil) 5 mg PO DAILY [facility] Last Admin: 03/01/19 09:11 Dose: 5 mg Metoprolol Succinate (Toprol Xl) 25 mg PO DAILY [facility] Last Admin: 03/01/19 09:07 Dose: 25 mg Ondansetron HCl (Zofran) 4 mg IV Q4H PRN PRN Reason: Nausea/Vomiting Pantoprazole Sodium (Protonix) 40 mg PO ACBREAKFAST [facility] Last Admin: 03/01/19 09:10 Dose: 40 mg Polyethylene Glycol (Miralax) 17 gm PO DAILY PRN PRN Reason: Constipation Fluticasone/Salmeterol (Fluticasone-Salmeterol 232-14 Mcg Powder Inha) 0 puff INH BIDRT [facility] Last Admin: 03/02/19 07:19 Dose: 1 puff Senna/Docusate Sodium (Senna Plus) 1 tab PO BID [facility] Last Admin: 03/01/19 21:00 Dose: Not Given Sodium Chloride (Saline Flush) 10 ml FLUSH ASDIRECTED PRN PRN Reason: Keep Vein Open Zolpidem Tartrate (Ambien) 10 mg PO BEDTIME [facility] Last Admin: 03/01/19 22:57 Dose: 10 mg Discontinued Medications Sodium Chloride (Normal Saline) 1,000 mls @ 500 mls/hr IV ASDIRECTED [facility] Last Admin: 02/28/19 17:30 Dose: 500 mls/hr Sodium Chloride (Normal Saline) 80 mls @ 3 mls/sec IV ASDIRECTED [facility] Stop: 02/28/19 18:00 Last Admin: 02/28/19 17:16 Dose: 3 mls/sec Sodium Chloride (Normal Saline) 1,000 mls @ 125 mls/hr IV ASDIRECTED [facility] Last Admin: 03/01/19 14:01 Dose: 125 mls/hr Iopamidol (Isovue-300 (61%)) 100 ml IV . DIRECTED [facility] Stop: 02/28/19 18:00 Last Admin: 02/28/19 17:17 Dose: 100 ml Fluticasone/Salmeterol (Fluticasone-Salmeterol 232-14 Mcg Powder Inha) 0 puff INH BID [facility] Last Admin: 02/28/19 21:14 Dose: Not Given Sodium Chloride (Saline Flush) 10 ml FLUSH ONETIME ONE Stop: 02/28/19 16:53 Last Admin: 02/28/19 17:16 Dose: 10 ml - Exam General: Reports: Alert, Oriented, Cooperative, Moderate Distress Lungs: Reports: Clear to Auscultation, Normal Respiratory Effort Cardiovascular: Reports: Regular Rate, Regular Rhythm, No Murmurs GI/Abdominal Exam: Soft, Non-Tender, No Organomegaly, No Distention Extremities: Arm Pain, Other (Pelvic pain)
[2019-03-02] MEDS: Ipratropium 0.06% Nasal Spray 15 ML Bottle NAS SCH (09:08)
[2019-03-02] MEDS: Pantoprazole 40 MG Tab.CR PO SCH (09:08)
[2019-03-02] MEDS: Acetaminophen/HYDROcodone 325-5 MG Tab PO PRN (09:24)
[2019-03-02] MEDS: Gabapentin 300 MG Cap PO SCH (11:12)
[2019-03-02] MEDS: Baclofen 10 MG Tab PO SCH (11:12)
[2019-03-02] MEDS: Aspirin 81 MG Tab.EC PO SCH (11:12)
[2019-03-02] MEDS: Lisinopril 5 MG Tab PO SCH (11:12)
[2019-03-02] MEDS: Enoxaparin 40 MG/0.4 ML Syringe SUBCUT SCH (11:12)
[2019-03-02] MEDS: Clopidogrel 75 MG Tab PO SCH (11:12)
[2019-03-02] MEDS: Cetirizine 10 MG Tab PO SCH (11:13)
[2019-03-02] MEDS: Metoprolol Succinate 25 MG Tab.ER PO SCH (11:13)
== END 2019-03-02 11:00 | disposition home health service (06) | DRG 563 ==
LOC: JP.ED 16:34 → JP.MS 18:48
PROVIDERS: ADMIT Hospitalist; ATTEND Hospitalist
DX: S32.599A Other specified fracture of unspecified pubis, initial encounter for closed fracture (principal); S42.212A Unspecified displaced fracture of surgical neck of left humerus, initial encounter for closed fracture; S32.592A Other specified fracture of left pubis, initial encounter for closed fracture; W11.XXXA Fall on and from ladder, initial encounter; I10 Essential (primary) hypertension; I25.2 Old myocardial infarction; K21.9 Gastro-esophageal reflux disease without esophagitis; M19.90 Unspecified osteoarthritis, unspecified site; G47.30 Sleep apnea, unspecified; H91.90 Unspecified hearing loss, unspecified ear; H54.7 Unspecified visual loss; E66.9 Obesity, unspecified; Z85.038 Personal history of other malignant neoplasm of large intestine; Z96.649 Presence of unspecified artificial hip joint; Z96.659 Presence of unspecified artificial knee joint; Z79.02 Long term (current) use of antithrombotics/antiplatelets; Z79.82 Long term (current) use of aspirin; Z68.30 Body mass index [BMI] 30.0-30.9, adult; Z79.899 Other long term (current) drug therapy
CPT/HCPCS: 36415; 71260; 73060-LT; 74177; 80048; 80053; 85025; 94640; 97110-GP; 97140-GP; 97161-GP; 97530-GP; 97535-GP; A9270-GY; J1650; J7030; Q9967

== ENCOUNTER 2019-03-24 09:16 | Emergency (ER) | payer MEDICARE, BC ==
--- NOTE | 2019-03-24 09:40 | EDM.PDOC ---
ED HPI GENERAL MEDICAL PROBLEM - General Chief Complaint: Lower Extremity Injury/Pain Stated Complaint: BOTH LEGS HAVE PAIN AND WEAKNESS Time Seen by Provider: 03/24/19 10:00 Source of Information: Reports: Patient, Family History Limitations: Reports: No Limitations - History of Present Illness INITIAL COMMENTS - FREE TEXT/NARRATIVE: 83-year-old male with lower extremity edema and pain with intense weakness and inability to ambulate. He was seen at the clinic 2 days ago and started on Lasix for lower extremity edema. He is not improving, in fact is too weak to ambulate even with assistance and needs to be in a jail or rehabilitation facility. He continues to have persistent bruising of the lower extremity, the edema he was seen for 2 days ago seems to have gone down in his right leg but the left leg is still painful, swollen, tender to touch and extremely weak. Onset: Unknown/Unsure Worsens with: Reports: Other (Any attempts of weightbearing or attempt at movement causes increased pain) Associated Symptoms: Reports: Malaise, Weakness. Denies: Cough, Fever/Chills, Nausea/Vomiting, Shortness of Breath Bilateral Leg Pain Score (Numeric/FACES): 6 - Related Data Allergies Allergy/AdvReac Type Severity Reaction Status Date / Time No Known Allergies Allergy Verified 03/24/19 09:43 Home Meds: Home Meds Amitriptyline [Elavil] 25 mg PO BEDTIME 06/16/14 [History] Aspirin [Adult Low Dose Aspirin EC] 81 mg PO DAILY 06/16/14 [History] Calcium Carbonate/Vitamin D3 [Oyster Shell 500 mg + Vit D] 1 tab PO DAILY [History] Gabapentin 600 mg PO BID 06/16/14 [History] Lisinopril [Prinivil] 5 mg PO DAILY 06/16/14 [History] Omeprazole [Prilosec] 40 mg PO DAILY 06/16/14 [History] Triamcinolone Acetonide [Triamcinolone Acetonide 0.1% Crm] 1 cm TOP TID PRN 11/23 [History] Zolpidem [Ambien] 10 mg PO BEDTIME 06/16/14 [History] Clopidogrel [Plavix] 75 mg PO DAILY 12/29/18 [History] Ipratropium [Atrovent 0.06% Nasal [place]] 2 spray REYNA TID 12/29/18 [History] Metoprolol Succinate [Toprol Xl] 25 mg PO DAILY 12/29/18 [History] Multivitamin [Multi-Day Vitamins] 1 each PO DAILY 12/29/18 [History] Cetirizine [ZyrTEC] 10 mg PO DAILY 02/11/19 [History] Glucosamine/D3/Boswellia Ciara [Osteo Bi-Flex Caplet] 2 each PO BID 02/11/19 [ History] Ubidecarenone [Co Q-10] 200 mg PO DAILY 02/11/19 [History] Hydrocodone/Acetaminophen [[place] 5-325 Tablet] 1 each PO Q4HR PRN #30 tablet [Rx] Baclofen 10 mg PO TID 03/24/19 [History] Furosemide [Lasix] 20 mg PO DAILY 03/24/19 [History] Past Medical History HEENT History: Reports: Allergic Rhinitis, Cataract, Hard of Hearing, Impaired Vision Cardiovascular History: Reports: Hypertension, [place] Respiratory History: Reports: Sleep Apnea Gastrointestinal History: Reports: Colon Polyp, GERD Musculoskeletal History: Reports: Arthritis, Fracture Other Musculoskeletal History: left humerus FX Neurological History: Reports: None Psychiatric History: Reports: None Endocrine/Metabolic History: Reports: Obesity/BMI 30+ Hematologic History: Reports: Anticoagulation Therapy, Blood Transfusion(s) Immunologic History: Reports: None Oncologic (Cancer) History: Reports: Colon, Other (See Below) Other Oncologic History: rectal Dermatologic History: Reports: None - Infectious Disease History Infectious Disease History: Reports: Chicken Pox, Measles, Mumps - Past Surgical History HEENT Surgical History: Reports: Cataract Surgery, Tonsillectomy Cardiovascular Surgical History: Reports: Other (See Below) Other Cardiovascular Surgeries/Procedures: angioplasty Respiratory Surgical History: Reports: None GI Surgical History: Reports: Appendectomy, Colonoscopy, Other (See Below) Other GI Surgeries/Procedures: rectal cancer 5 years ago with low rectal surgery Endocrine Surgical History: Reports: None Musculoskeletal Surgical History: Reports: Arthroscopic Knee, Hip Replacement, Knee Replacement Oncologic Surgical History: Reports: Other (See Below) Other Oncologic Surgeries/Procedures: rectal surgery Social & Family History - Caffeine Use Caffeine Use: Reports: None Review of Systems - Review of Systems Review Of Systems: See Below Constitutional: Denies: Fever Eyes: Reports: No Symptoms Respiratory: Denies: Shortness of Breath, Cough Cardiovascular: Denies: Chest Pain GI/Abdominal: Denies: Abdominal Pain Musculoskeletal: Reports: Back Pain, Leg Pain Skin: Reports: Bruising Neurological: Denies: Headache ED EXAM, GENERAL - Physical Exam Exam: See Below Exam Limited By: No Limitations General Appearance: Alert, No Apparent Distress Eye Exam: Bilateral Eye: EOMI (No jaundice or significant pallor) Respiratory/Chest: No Respiratory Distress Cardiovascular: Regular Rate, Rhythm GI/Abdominal: Soft, Non-Tender Extremities: Other (Patient has 2+ pitting edema of the left extremity, minimal edema of the right. There is also significant bruising of the groin, medial knee and calf and ankle area of the left leg. The entire leg is tender to palpation) Neurological: Alert, Oriented Psychiatric: No: Depressed Mood, Flat Affect Course - Vital Signs Last Recorded V/S: Last Vital Signs Temp 96.5 F 03/24/19 13:34 Pulse 63 03/24/19 13:34 Resp 16 03/24/19 13:34 BP 132/73 03/24/19 13:34 Pulse Ox 95 03/24/19 13:34 - Re-Assessments/Exams Free Text/Narrative Re-Assessment/Exam: 03/24/19 10:26 Clinic records were reviewed including lab and assessment with plan. No further lab is necessary at this time but an ultrasound of the left leg will be obtained to rule out DVT. If positive he may need inpatient admission, if negative discharge planning will be consulted to assist with jail placement. 03/24/19 11:23 Leg ultrasound is negative for DVT. Discharge planning was consulted. 03/24/19 12:36 Discharge planning revealed that he has not eligible for jail placement without a 3 day inpatient stay. Unfortunately we do not have beds here, but Dr. Pedro in [place] kindly accepted the patient for admission. The patient has been taking care of in [place], and has had a jail bed in [place] which he was comfortable with so that will be the plan. Departure - Departure Time of Disposition: 14:18 Disposition: DC/Tfer to Other 70 Clinical Impression: Lower extremity weakness Qualifiers: Laterality: bilateral Qualified Code(s): R29.898 - Other symptoms and signs involving the musculoskeletal system Pelvic fracture Qualifiers: Encounter type: subsequent encounter Pelvic bone location: pubis Fracture type : closed Laterality: left - Discharge Information Referrals: Storm Beckett MD [Primary Care Provider] - Forms: ED Department Discharge Care Plan Goals: Go directly to [facility] where you will be admitted for symptom control and preparation for jail placement.
--- NOTE | 2019-03-24 11:44 | CRLUS ---
INDICATION: concern for dvt, left leg pain and swelling TECHNIQUE: Ultrasound venous duplex left lower extremity. COMPARISON: None. FINDINGS: The left common femoral, superficial femoral, deep femoral, popliteal, posterior tibial, and greater saphenous veins are fully compressible normal waveforms. IMPRESSION: Normal ultrasound of the left lower extremity veins. Dictated by: Storm Denis MD @ 03/24/2019 11:43:21 (Electronically Signed)
[2019-03-24 13:35] VITALS: BP 132/73; PULSE 63
== END 2019-03-24 14:00 | disposition other institution (70) ==
LOC: JP.ED 09:16
DX: M62.81 Muscle weakness (generalized) (principal); S32.502 Unspecified fracture of left pubis; K21.9 Gastro-esophageal reflux disease without esophagitis; I10 Essential (primary) hypertension; I25.2 Old myocardial infarction; E66.9 Obesity, unspecified; Z79.899 Other long term (current) drug therapy; Z79.82 Long term (current) use of aspirin; Z68.30 Body mass index [BMI] 30.0-30.9, adult; Z98.890 Other specified postprocedural states; Z90.49 Acquired absence of other specified parts of digestive tract
CPT/HCPCS: 93971-LT; 99284-25

== ENCOUNTER 2019-07-05 22:47 | Emergency (ER) | payer MEDICARE, BC ==
[2019-07-05 23:09] VITALS: BP 135/91; PULSE 83
--- NOTE | 2019-07-06 00:02 | EDM.PDOC ---
ED HPI GENERAL MEDICAL PROBLEM - General Chief Complaint: Respiratory Problem Stated Complaint: SHORTNESS OF BREATH Time Seen by Provider: 07/05/19 23:50 Source of Information: Reports: Patient, RN Notes Reviewed History Limitations: Reports: No Limitations - History of Present Illness INITIAL COMMENTS - FREE TEXT/NARRATIVE: 83-year-old gentleman presents emergency department today complaint of shortness of breath, he states he had some difficulty breathing a couple hours prior but he feels back to his normal self at this time he feels his breathing has returned to normal he does have an extensive history of secondhand exposure Lower Abdominal Pain Score (Numeric/FACES): 0 - Related Data Allergies Allergy/AdvReac Type Severity Reaction Status Date / Time No Known Allergies Allergy Verified 07/05/19 22:57 Home Meds: Home Meds Amitriptyline [Elavil] 25 mg PO BEDTIME 06/16/14 [History] Calcium Carbonate/Vitamin D3 [Oyster Shell 500 mg + Vit D] 1 tab PO DAILY [History] Gabapentin 600 mg PO BID 06/16/14 [History] Omeprazole [Prilosec] 40 mg PO DAILY 06/16/14 [History] Zolpidem [Ambien] 10 mg PO BEDTIME 06/16/14 [History] lisinopriL [Prinivil] 5 mg PO DAILY 06/16/14 [History] Clopidogrel [Plavix] 75 mg PO DAILY 12/29/18 [History] Ipratropium [Atrovent 0.06% Nasal [place]] 2 spray REYNA TID 12/29/18 [History] Metoprolol Succinate [Toprol Xl] 25 mg PO DAILY 12/29/18 [History] Multivitamin [Multi-Day Vitamins] 1 each PO DAILY 12/29/18 [History] Cetirizine [ZyrTEC] 10 mg PO DAILY 02/11/19 [History] Ubidecarenone [Co Q-10] 200 mg PO DAILY 02/11/19 [History] Hydrocodone/Acetaminophen [[place] 5-325 Tablet] 1 each PO Q4HR PRN #30 tablet [Rx] Baclofen 10 mg PO TID 03/24/19 [History] Acetaminophen [Tylenol] 325 mg PO TID 07/05/19 [History] Albuterol [Proventil Neb Soln] 07/05/19 [History] Budesonide/Formoterol [Symbicort 160-4.5 MCG] 2 puff INH BID PRN 07/05/19 [ History] Fluticasone Propionate [Flonase Allergy Relief] 2 spray REYNA DAILY 07/05/19 [ History] rOPINIRole HCl [Requip] 0.25 mg PO DAILY 07/05/19 [History] Past Medical History HEENT History: Reports: Allergic Rhinitis, Cataract, Hard of Hearing, Impaired Vision Cardiovascular History: Reports: CAD, Hypertension, [place] Respiratory History: Reports: Sleep Apnea Gastrointestinal History: Reports: Colon Polyp, GERD Musculoskeletal History: Reports: Arthritis, Fracture Other Musculoskeletal History: left humerus FX Endocrine/Metabolic History: Reports: Obesity/BMI 30+ Hematologic History: Reports: Anticoagulation Therapy, Blood Transfusion(s) Immunologic History: Reports: None Oncologic (Cancer) History: Reports: Colon, Other (See Below) Other Oncologic History: rectal Dermatologic History: Reports: None - Infectious Disease History Infectious Disease History: Reports: Chicken Pox, Measles, Mumps, Shingles - Past Surgical History HEENT Surgical History: Reports: Cataract Surgery, Tonsillectomy Cardiovascular Surgical History: Reports: Other (See Below) Other Cardiovascular Surgeries/Procedures: angioplasty GI Surgical History: Reports: Appendectomy, Colonoscopy, Esophageal Dilatation, Other (See Below) Other GI Surgeries/Procedures: rectal cancer 5 years ago with low rectal surgery Endocrine Surgical History: Reports: None Musculoskeletal Surgical History: Reports: Arthroscopic Knee, Hip Replacement, Knee Replacement, Other (See Below) Other Musculoskeletal Surgeries/Procedures:: bilateral hips Oncologic Surgical History: Reports: Other (See Below) Other Oncologic Surgeries/Procedures: rectal surgery Social & Family History - Tobacco Use Smoking Status *Q: Never Smoker - Caffeine Use Caffeine Use: Reports: Coffee - Recreational Drug Use Recreational Drug Use: No ED ROS GENERAL - Review of Systems Review Of Systems: See Below Constitutional: Reports: No Symptoms HEENT: Reports: No Symptoms Respiratory: Reports: Shortness of Breath. Denies: Cough, Sputum Cardiovascular: Reports: No Symptoms GI/Abdominal: Reports: No Symptoms ED EXAM, GENERAL - Physical Exam Exam: See Below Exam Limited By: No Limitations General Appearance: Alert, WD/WN, No Apparent Distress Neck: Normal Inspection, Supple, Non-Tender, Full Range of Motion Respiratory/Chest: No Respiratory Distress, Lungs Clear, Normal Breath Sounds, No Accessory Muscle Use, Chest Non-Tender Cardiovascular: Regular Rate, Rhythm, No Murmur Course - Vital Signs Last Recorded V/S: Last Vital Signs Temp 97.5 F 07/05/19 23:00 Pulse 83 07/05/19 23:08 Resp 22 H 07/05/19 23:00 BP 135/91 H 07/05/19 23:08 Pulse Ox 93 L 07/05/19 23:08 - Orders/Labs/Meds Labs: Laboratory Tests 07/05/19 07/05/19 Range/Units 00:03 00:03 WBC 3.8 L (4.5-11.0) K/uL RBC 4.34 (4.30-5.90) M/uL Hgb 13.4 (12.0-15.0) g/dL Hct 41.9 (40.0-54.0) % MCV 97 (80-98) fL MCH 31 (27-31) pg MCHC 32 (32-36) % Plt Count 187 (150-400) K/uL Neut % (Auto) 51 (36-66) % Lymph % (Auto) 39 (24-44) % Ness % (Auto) 9 H (2-6) % Eos % (Auto) 1 L (2-4) % Baso % (Auto) 0 (0-1) % Sodium 138 L (140-148) mmol/L Potassium 4.6 (3.6-5.2) mmol/L Chloride 103 (100-108) mmol/L Carbon Dioxide 26 (21-32) mmol/L Anion Gap 13.6 (5.0-14.0) mmol/L BUN 26 H D (7-18) mg/dL Creatinine 1.3 (0.8-1.3) mg/dL Est Cr Clr Drug Dosing 38.17 mL/min Estimated GFR (MDRD) 53 L (>60) Glucose 112 H (74-106) mg/dL Calcium 8.9 (8.5-10.1) mg/dL Total Bilirubin 0.3 (0.2-1.0) mg/dL AST 17 (15-37) U/L ALT 27 (12-78) U/L Alkaline Phosphatase 106 (46-116) U/L Troponin I < 0.017 (0.000-0.056) ng/mL Total Protein 6.9 (6.4-8.2) g/dL Albumin 3.4 (3.4-5.0) g/dL Globulin 3.5 (2.3-3.5) g/dL Albumin/Globulin Ratio 1.0 L (1.2-2.2) Departure - Departure Time of Disposition: 18 Disposition: Home, Self-Care 01 Condition: Fair Clinical Impression: Dyspnea Qualifiers: Dyspnea type: shortness of breath Qualified Code(s): R06.02 - Shortness of breath; R06.00 - Dyspnea, unspecified; R06.01 - Orthopnea - Discharge Information Instructions: Shortness of Breath, Adult, [id number] Referrals: Storm Beckett MD [Primary Care Provider] - Forms: ED Department Discharge Additional Instructions: Please followup with your primary care provider in 3-5 days if not better, please call return to the emergency department with worsening of symptoms. Sepsis Event Note - Evaluation Sepsis Screening Result: No Definite Risk - Focused Exam Vital Signs: Vital Signs Temp Pulse Resp BP Pulse Ox 07/05/19 23:08 83 135/91 H 93 L 07/05/19 23:00 97.5 F 83 22 H 135/91 H 93 L 07/05/19 22:48 97.5 F 85 22 H 154/88 H 94 L Date Exam was Performed: 07/06/19 Time Exam was Performed: 01:17 - Assessment/Plan Plan: Assessment Acuity = acute Site and laterality = dyspnea Etiology = unknown Manifestations = none Location of injury = Home Lab values = CBC, CMP, chest x-ray all within normal limits Plan He remained asymptomatic while in the emergency department, discharged home have him follow-up with his primary care in 3 to 5 days for further evaluation This note was dictated using tado voice recognition software please call with any questions on syntax or grammar.
--- NOTE | 2019-07-06 01:08 | CRLCR ---
Indication: Shortness of breath Technique: Chest 2 views Comparison: 06/28/2016 Findings/Impression: Cardiovascular and mediastinum: An enlarged cardiac silhouette which may be partially related to prominent epicardial fat pads. Apparent prominence of the left atrium. An ectatic, calcified aorta. Lungs and pleural spaces: A mildly expiratory study with possible mild right infrahilar subsegmental atelectasis. No lobar consolidation or pleural effusions. Bones and soft tissues: No significant findings. Dictated by Alen Vyas MD @ 07/06/2019 1:05:41 AM Dictated by: Alen Vyas MD @ 07/06/2019 01:05:46 (Electronically Signed)
== END 2019-07-06 01:26 | disposition home or self-care (01) ==
LOC: JP.ED 22:47
DX: R06.02 Shortness of breath (principal); R06.00 Dyspnea, unspecified; R06.01 Orthopnea; H54.7 Unspecified visual loss; H91.90 Unspecified hearing loss, unspecified ear; I25.10 Atherosclerotic heart disease of native coronary artery without angina pectoris; I10 Essential (primary) hypertension; I25.2 Old myocardial infarction; G47.30 Sleep apnea, unspecified; K21.9 Gastro-esophageal reflux disease without esophagitis; Z98.49 Cataract extraction status, unspecified eye; Z96.659 Presence of unspecified artificial knee joint; Z96.649 Presence of unspecified artificial hip joint; Z79.02 Long term (current) use of antithrombotics/antiplatelets; Z79.899 Other long term (current) drug therapy
CPT/HCPCS: 36415; 71046; 80053; 84484; 85025; 99283; 99285-25

== ENCOUNTER 2019-07-26 15:10 | Emergency (ER) | payer MEDICARE, BC ==
--- NOTE | 2019-07-26 16:21 | EDM.PDOC ---
ED HPI GENERAL MEDICAL PROBLEM - General Chief Complaint: Respiratory Problem Stated Complaint: SOB Time Seen by Provider: 07/26/19 16:19 Source of Information: Reports: Patient, Old Records, RN Notes Reviewed History Limitations: Reports: No Limitations - History of Present Illness INITIAL COMMENTS - FREE TEXT/NARRATIVE: 83-year-old gentleman presents emergency department a complaint of shortness of breath particularly when he bends over he gets severely short of breath, did have a pulmonary function test done which was within normal limits he states this has been going on for now 8 months. He is noticed a weight gain of 20 pounds mainly in his abdomen which has become more distended. denies Pain Score (Numeric/FACES): 0 - Related Data Allergies Allergy/AdvReac Type Severity Reaction Status Date / Time No Known Allergies Allergy Verified 07/26/19 15:28 Home Meds: Home Meds Amitriptyline [Elavil] 25 mg PO BEDTIME 06/16/14 [History] Calcium Carbonate/Vitamin D3 [[place]yster [place] 500 mg + Vit D] 1 tab PO DAILY [History] Gabapentin 600 mg PO BID 06/16/14 [History] Omeprazole [Prilosec] 40 mg PO DAILY 06/16/14 [History] Zolpidem [Ambien] 10 mg PO BEDTIME 06/16/14 [History] lisinopriL [Prinivil] 5 mg PO DAILY 06/16/14 [History] Clopidogrel [Plavix] 75 mg PO DAILY 12/29/18 [History] Ipratropium [Atrovent 0.06% Nasal [place]] 2 spray REYNA TID 12/29/18 [History] Metoprolol Succinate [Toprol Xl] 25 mg PO DAILY 12/29/18 [History] Multivitamin [Multi-Day Vitamins] 1 each PO DAILY 12/29/18 [History] Cetirizine [ZyrTEC] 10 mg PO DAILY 02/11/19 [History] Ubidecarenone [Co Q-10] 200 mg PO DAILY 02/11/19 [History] Hydrocodone/Acetaminophen [[place] 5-325 Tablet] 1 each PO Q4HR PRN #30 tablet [Rx] Baclofen 10 mg PO BID 03/24/19 [History] Fluticasone Propionate [Flonase Allergy Relief] 2 spray REYNA DAILY 07/05/19 [ History] rOPINIRole HCl [Requip] 0.25 mg PO DAILY 07/05/19 [History] Baclofen 1 tab PO BID 07/26/19 [History] Zolpidem Tartrate 1 tab PO BEDTIME PRN 07/26/19 [History] Past Medical History HEENT History: Reports: Allergic Rhinitis, Cataract, Hard of Hearing, Impaired Vision Cardiovascular History: Reports: CAD, Hypertension, [place] Respiratory History: Reports: Sleep Apnea Gastrointestinal History: Reports: Colon Polyp, GERD Musculoskeletal History: Reports: Arthritis, Fracture Other Musculoskeletal History: left humerus FX Neurological History: Reports: Neuropathy, Peripheral Endocrine/Metabolic History: Reports: Obesity/BMI 30+ Hematologic History: Reports: Anticoagulation Therapy, Blood Transfusion(s) Oncologic (Cancer) History: Reports: Colon, Other (See Below) Other Oncologic History: rectal - Infectious Disease History Infectious Disease History: Reports: Chicken Pox, Measles, Mumps, Shingles - Past Surgical History HEENT Surgical History: Reports: Cataract Surgery, Tonsillectomy Cardiovascular Surgical History: Reports: Other (See Below) Other Cardiovascular Surgeries/Procedures: angioplasty GI Surgical History: Reports: Appendectomy, Colonoscopy, Esophageal Dilatation, Other (See Below) Other GI Surgeries/Procedures: rectal cancer 5 years ago with low rectal surgery Endocrine Surgical History: Reports: None Musculoskeletal Surgical History: Reports: Arthroscopic Knee, Hip Replacement, Knee Replacement, Other (See Below) Other Musculoskeletal Surgeries/Procedures:: bilateral hips Oncologic Surgical History: Reports: Other (See Below) Other Oncologic Surgeries/Procedures: rectal surgery Social & Family History - Tobacco Use Smoking Status *Q: Never Smoker Second Hand Smoke Exposure: No - Caffeine Use Caffeine Use: Reports: Coffee, Soda - Alcohol Use Days Per Week of Alcohol Use: 0 - Recreational Drug Use Recreational Drug Use: No ED ROS GENERAL - Review of Systems Review Of Systems: See Below Constitutional: Reports: Weight Gain HEENT: Reports: No Symptoms Respiratory: Reports: Shortness of Breath. Denies: Cough, Sputum Cardiovascular: Reports: Dyspnea on Exertion. Denies: Chest Pain GI/Abdominal: Reports: No Symptoms : Reports: No Symptoms Musculoskeletal: Reports: No Symptoms ED EXAM, GENERAL - Physical Exam Exam: See Below Exam Limited By: No Limitations General Appearance: Alert, WD/WN, No Apparent Distress Respiratory/Chest: No Respiratory Distress, Lungs Clear, Normal Breath Sounds, No Accessory Muscle Use, Chest Non-Tender Cardiovascular: Regular Rate, Rhythm, No Murmur GI/Abdominal: Soft, Non-Tender, Distended Course - Vital Signs Last Recorded V/S: Last Vital Signs Temp 97.6 F 07/26/19 15:48 Pulse 78 07/26/19 17:51 Resp 18 07/26/19 17:51 BP 179/118 H 07/26/19 17:51 Pulse Ox 98 07/26/19 17:51 - Orders/Labs/Meds Orders: Active Orders 24 hr Category Date Time Status Peripheral IV Care [RC] . DIRECTED Care 07/26/19 16:48 Active Lactated Ringers [Ringers, Lactated] 1,000 ml Med 07/26/19 17:00 Active IV ASDIRECTED Sodium Chloride 0.9% [Normal Saline] 84 ml Med 07/26/19 17:00 Active IV ASDIRECTED Sodium Chloride 0.9% [Saline Flush] Med 07/26/19 16:48 Active 10 ml FLUSH ASDIRECTED PRN Peripheral IV Insertion Adult [OM.PC] Urgent Oth 07/26/19 16:48 Ordered Medication Orders Lactated Ringer's (Ringers, Lactated) 1,000 mls @ 500 mls/hr IV ASDIRECTED CICI Last Admin: 07/26/19 17:01 Dose: 500 mls/hr Sodium Chloride (Normal Saline) 84 mls @ 3.5 mls/sec IV ASDIRECTED CICI Last Admin: 07/26/19 17:26 Dose: 3.5 mls/sec Sodium Chloride (Saline Flush) 10 ml FLUSH ASDIRECTED PRN PRN Reason: Keep Vein Open Labs: Laboratory Tests 07/26/19 07/26/19 07/26/19 Range/Units 16:55 16:55 16:55 WBC 3.7 L (4.5-11.0) K/uL RBC 5.07 (4.30-5.90) M/uL Hgb 15.4 H D (12.0-15.0) g/dL Hct 48.3 (40.0-54.0) % MCV 95 (80-98) fL MCH 30 (27-31) pg MCHC 32 (32-36) % Plt Count 175 (150-400) K/uL Neut % (Auto) 48 (36-66) % Lymph % (Auto) 43 (24-44) % [place] % (Auto) 8 H (2-6) % Eos % (Auto) 1 L (2-4) % Baso % (Auto) 1 (0-1) % Sodium 141 (140-148) mmol/L Potassium 4.2 (3.6-5.2) mmol/L Chloride 103 (100-108) mmol/L Carbon Dioxide 26 (21-32) mmol/L Anion Gap 11.6 (5.0-14.0) mmol/L BUN 19 H (7-18) mg/dL Creatinine 1.2 (0.8-1.3) mg/dL Est Cr Clr Drug Dosing 41.35 mL/min Estimated GFR (MDRD) 58 L (>60) Glucose 99 (74-106) mg/dL Lactic Acid 1.6 (0.4-2.0) mmol/L Calcium 9.4 (8.5-10.1) mg/dL Total Bilirubin 0.3 (0.2-1.0) mg/dL AST 25 (15-37) U/L ALT 32 (12-78) U/L Alkaline Phosphatase 116 (46-116) U/L Total Protein 8.0 (6.4-8.2) g/dL Albumin 3.9 (3.4-5.0) g/dL Globulin 4.1 H (2.3-3.5) g/dL Albumin/Globulin Ratio 1.0 L (1.2-2.2) Meds: Medications Generic Name Dose Route Start Last Admin Trade Name Freq PRN Reason Stop Dose Admin Lactated Ringer's 1,000 mls @ 500 mls/hr 07/26/19 17:00 07/26/19 17:01 Ringers, Lactated IV 500 mls/hr ASDIRECTED CICI Administration Sodium Chloride 84 mls @ 3.5 mls/sec 07/26/19 17:00 07/26/19 17:26 Normal Saline IV 3.5 mls/sec ASDIRECTED CICI Administration Sodium Chloride 10 ml 07/26/19 16:48 Saline Flush FLUSH ASDIRECTED PRN Keep Vein Open Discontinued Medications Generic Name Dose Route Start Last Admin Trade Name Freq PRN Reason Stop Dose Admin Iopamidol 146 ml 07/26/19 17:00 07/26/19 17:26 Isovue-300 (61%) IV 146 ml . DIRECTED CICI Administration Sodium Chloride 10 ml 07/26/19 16:55 07/26/19 17:24 Saline Flush FLUSH 07/26/19 16:56 10 ml ONETIME ONE Administration Departure - Departure Time of Disposition: 18:11 Disposition: Home, Self-Care 01 Condition: Fair Clinical Impression: Abdominal distention - Discharge Information Referrals: PCP,None [Primary Care Provider] - Forms: ED Department Discharge Additional Instructions: Please follow-up with your primary care in the next 3 to 5 days for reevaluation , call return to the emergency department worsening of symptoms Sepsis Event Note - Evaluation Sepsis Screening Result: No Definite Risk - Focused Exam Vital Signs: Vital Signs Temp Pulse Resp BP Pulse Ox 07/26/19 17:51 78 18 179/118 H 98 07/26/19 16:22 85 21 H 180/97 H 94 L 07/26/19 15:48 97.6 F 71 16 174/89 H 94 L 07/26/19 15:26 97.6 F 71 17 174/89 H 94 L Date Exam was Performed: 07/26/19 Time Exam was Performed: 18:10 - My Orders Last 24 Hours: My Active Orders 07/26/19 16:48 Peripheral IV Care [RC] . DIRECTED Sodium Chloride 0.9% [Saline Flush] 10 ml FLUSH ASDIRECTED PRN Peripheral IV Insertion Adult [OM.PC] Urgent 07/26/19 17:00 Lactated Ringers [Ringers, Lactated] 1,000 ml IV ASDIRECTED Sodium Chloride 0.9% [Normal Saline] 84 ml IV ASDIRECTED - Assessment/Plan Last 24 Hours: My Active Orders 07/26/19 16:48 Peripheral IV Care [RC] . DIRECTED Sodium Chloride 0.9% [Saline Flush] 10 ml FLUSH ASDIRECTED PRN Peripheral IV Insertion Adult [OM.PC] Urgent 07/26/19 17:00 Lactated Ringers [Ringers, Lactated] 1,000 ml IV ASDIRECTED Sodium Chloride 0.9% [Normal Saline] 84 ml IV ASDIRECTED Plan: Assessment Acuity = acute Site and laterality = abdominal distention Etiology = unclear etiology Manifestations = dyspnea secondary to abdominal girth Location of injury = Home Lab values = WBC low at 3.7 consistent leukopenia, CMP unremarkable CT scan of the abdomen shows no acute process Plan I did review lab work CT scan results with him he is going to follow-up with his primary care for further evaluation recommend consultation with dietitian he has gained quite a bit of weight over the last year he does drink 1 or 2 boost energy drinks per day which may be excess calories This note was dictated using [employer] voice recognition software please call with any questions on syntax or grammar.
--- NOTE | 2019-07-26 16:46 | CRLCR ---
Indication: Distension. Technique: AP supine views of the abdomen and pelvis. Comparison: None Findings: The bowel gas pattern is nonobstructive. A moderate amount of stool is identified within the ascending colon. Degenerative changes of the spine are identified. Impression: Nonobstructive bowel gas pattern. Dictated by Effie Andres MD @ Jul 26 2019 4:45PM Signed by Dr. Effie Andres @ Jul 26 2019 4:45PM
[2019-07-26] MEDS ORDERED: Sodium Chloride 0.9% 10 ML Syringe FLUSH PRN (16:48)
[2019-07-26] MEDS ORDERED: Sodium Chloride 0.9% 10 ML Syringe FLUSH ONE (16:55)
[2019-07-26] MEDS ORDERED: Iopamidol 612 MG/ML 150 ML Bottle IV SCH (17:00)
[2019-07-26] MEDS ORDERED: Lactated Ringers 1,000 ML IV SCH (17:00)
[2019-07-26 17:53] VITALS: BP 179/118; PULSE 78
--- NOTE | 2019-07-26 17:58 | CRLCT ---
INDICATION: Abdominal distension. COMPARISON: CT of the chest, abdomen, and pelvis from 02/28/2019. Previous abdominal radiographs from earlier today. TECHNIQUE: CT examination of the abdomen and pelvis was performed with the uneventful intravenous administration of 146 cc of Isovue-300 while 3 mm thick axial sections were obtained from the lung bases through the pubic symphysis. Oral contrast was not administered. Please note that all CT scans at this facility use dose modulation, iterative reconstruction, and/or weight-based dosing when appropriate to reduce radiation dose to as low as reasonably achievable. FINDINGS: In the abdomen, the liver, pancreas, and adrenals are normal in appearance. Again seen is a 9 millimeter poorly defined hypodensity in the mid body of the spleen, possibly a cyst or hemangioma. The kidneys are normal in appearance. The gallbladder is normal in appearance. The abdominal aorta is normal in caliber with no sign of dilatation. There is no sign of retroperitoneal mass or adenopathy. There is no change in mild diverticulosis of the colon of the hepatic flexure. The stomach, loops of small bowel, and the rest of the colon in the abdomen are normal in appearance. In the pelvis, the appendix is nonvisualized, but there is no sign of an inflammatory process in the area of the appendix. The loops of small bowel and colon in the pelvis are normal in appearance. There is prominent streak artifact from bilateral total hip prostheses, obscuring the area of the prostate and inferior urinary bladder. The superior portion of the urinary bladder is normal in appearance. There is no sign of pelvic or inguinal mass or adenopathy. The lung bases are clear. There is no change in prominent L2-3 disc degenerative disease. There is no change in mild disc degenerative disease throughout the rest of the lumbar spine. Again seen is mild scoliosis of the thoracolumbar spine convex towards the right. The total hip prostheses remain in anatomic alignment with no sign of fracture, loosening, or dislocation. The previously seen acute fracture of the left inferior pubic ramus has healed without deformity. The previously seen nondisplaced fracture of the lateral aspect of the left superior pubic ramus and the medial left acetabulum has healed without deformity. IMPRESSION: Nothing seen to explain the patient`s abdominal distension. No sign of obstruction or ileus. No sign of constipation. CT of the abdomen shows no change in mild diverticulosis of the colon of the hepatic flexure with no sign of diverticulitis. CT examination of the pelvis is limited by prominent streak artifact from bilateral total hip prostheses. Satisfactory healing of previously seen nondisplaced fractures of the left superior and inferior pubic rami and of the medial aspect of the left acetabulum. Please note that all CT scans at this facility use dose modulation, iterative reconstruction, and/or weight-based dosing when appropriate to reduce radiation dose to as low as reasonably achievable. Dictated by Dain Le MD @ Jul 26 2019 5:47PM Signed by Dr. Dain Le @ Jul 26 2019 5:57PM
== END 2019-07-26 18:30 | disposition home or self-care (01) ==
LOC: JP.ED 15:10
DX: R14.0 Abdominal distension (gaseous) (principal); I25.2 Old myocardial infarction; I10 Essential (primary) hypertension; Z79.899 Other long term (current) drug therapy
CPT/HCPCS: 36415; 74018; 74177; 80053; 83605; 85025; 96360; 99285; J7050; J7120; Q9967

== ENCOUNTER 2019-08-26 09:37 | Day surgery (SDC) | payer MEDICARE, BC ==
[~2019-08-26 09:37] MED LIST: Midazolam 1 MG/ML 2 ML SDV ONE; Propofol 200 MG/20 ML SDV ONE; fentaNYL 100 MCG/2 ML SDV ONE
[2019-08-26] MEDS ORDERED: Dextrose 5%-Lactated Ringers 1,000 ML IV SCH (10:15)
[2019-08-26] MEDS ORDERED: Meropenem 500 MG in Sodium Chloride 0.9% 50 ML IV ONE (10:15)
[2019-08-26] MEDS ORDERED: Albuterol/Ipratropium 3.0-0.5 MG/3 ML Neb Soln NEB ONE (10:15)
[2019-08-26 12:40] VITALS: BP 134/70; PULSE 95
--- NOTE | 2019-09-05 12:47 | OR ---
DATE OF PROCEDURE: 08/26/2019 SURGEON: João Hughes MD PREOPERATIVE DIAGNOSIS: Dysphagia with no history of gastroesophageal reflux disease. POSTOPERATIVE DIAGNOSES: 1. Moderate-sized hiatal hernia with quite active gastroesophageal reflux disease. 2. Erosive antral gastritis. OPERATIVE PROCEDURE: Esophagogastroduodenoscopy with: 1. Biopsy of the esophagogastric junction for histologic evaluation. 2. Biopsies of antrum for CLOtest (86750). 3. Dilation of esophagus (00880). ANESTHESIA: IV sedation. INDICATIONS FOR PROCEDURE: An 83-year-old presenting with increasing dysphagia, has known active gastroesophageal reflux disease, presently being managed with 40 mg of omeprazole daily. Six months ago, the patient underwent an upper endoscopy with dilation which until recently helped with the symptoms of dysphagia. Plan is to proceed with an upper GI endoscopy with biopsies and dilation as indicated. Potential risks including bleeding and perforation were discussed, and the patient wishes to proceed. DETAILS OF PROCEDURE: The patient was taken to the operating room and placed in a left lateral decubitus position. IV sedation was administered after which the upper GI endoscope was passed orally through the length of esophagus into the stomach with retroflexion view of the fundus, thereafter through the pyloric channel and into the proximal duodenum. Findings included normal hypopharynx, larynx, upper esophageal sphincter, and esophageal body. At the EG junction, the patient was noted to have a moderate-sized hiatal hernia measuring around 4 cm and quite active gastroesophageal reflux disease with the EG junction mucosa being quite edematous. There was a vague sense of narrowing in that area, but the scope easily passed through the region. In the stomach, there was some patchy antral gastritis with some scattered erosions within it. The pyloric channel and duodenum to the junction of the 3rd and 4th portions were unremarkable. At this point, biopsies were obtained from the antrum to assess patient's H. pylori status, and then following this, multiple biopsies were obtained from esophagogastric junction for histologic evaluation. Minimal bleeding from the biopsy sites was seen. The guidewire was then passed into the stomach and the gastroscope withdrawn. Over the guidewire, a 54-Kazakh Savary dilator was then positioned for esophageal dilation, held in position for 1 minute after which the dilator and wire were removed. The patient was taken to the recovery room in satisfactory condition. As discussed with the family member present, we can do these upper endoscopies periodically. If the patient was younger and a better risk group, this would certainly be a case where one would consider repair of the diaphragmatic hernia, but at this point between the dilations, he is doing fairly well, and would continue the present plan with intermittent dilations as indicated for the time being. João Hughes MD /[id number]
== END 2019-08-26 12:30 | disposition home or self-care (01) ==
LOC: JP.SDS 09:37
PROVIDERS: ATTEND Surgery
DX: K21.9 Gastro-esophageal reflux disease without esophagitis (principal); K44.9 Diaphragmatic hernia without obstruction or gangrene; K29.70 Gastritis, unspecified, without bleeding; I10 Essential (primary) hypertension; G47.33 Obstructive sleep apnea (adult) (pediatric); I25.10 Atherosclerotic heart disease of native coronary artery without angina pectoris; M19.90 Unspecified osteoarthritis, unspecified site
CPT/HCPCS: 43239; 43248; 87081; 88305; 94640; J2185; J2704; J3010; J7050; J7121; J2250; J7620-GY

== ENCOUNTER 2020-05-08 11:32 | Emergency (ER) | payer MEDICARE, BC ==
--- NOTE | 2020-05-08 12:02 | EDM.PDOC ---
ED HPI GENERAL MEDICAL PROBLEM - General Chief Complaint: Lower Extremity Injury/Pain Stated Complaint: SWELLING IN RIGHT LEG Time Seen by Provider: 05/08/20 11:50 Source of Information: Reports: Patient History Limitations: Reports: Intoxication - History of Present Illness INITIAL COMMENTS - FREE TEXT/NARRATIVE: pt arrived with increaswed swelling and tenderness mainly in th anterior portion of the rt leg. He does have a small ulcer which looks mainly closed but is very tender around it. Onset: Other (last 2-3 days. ) Duration: Hour(s): Location: Reports: Lower Extremity, Right, Other ( He is tender on the anterior portion. ) Associated Symptoms: Reports: No Other Symptoms - Related Data Allergies Allergy/AdvReac Type Severity Reaction Status Date / Time No Known Allergies Allergy Verified 08/26/19 09:52 Home Meds: Home Meds Amitriptyline [Elavil] 25 mg PO DAILY 06/16/14 [History] Gabapentin 600 mg PO BID 06/16/14 [History] Omeprazole [Prilosec] 40 mg PO DAILY 06/16/14 [History] Zolpidem [Ambien] 10 mg PO BEDTIME 06/16/14 [History] lisinopriL [Prinivil] 5 mg PO DAILY 06/16/14 [History] Clopidogrel [Plavix] 75 mg PO DAILY 12/29/18 [History] Ipratropium [Atrovent 0.06% Nasal [place]] 2 spray REYNA TID 12/29/18 [History] Metoprolol Succinate [Toprol Xl] 25 mg PO DAILY 12/29/18 [History] Multivitamin [Multi-Day Vitamins] 1 each PO DAILY 12/29/18 [History] Ubidecarenone [Co Q-10] 200 mg PO DAILY 02/11/19 [History] Baclofen 10 mg PO TID 03/24/19 [History] Fluticasone Propionate [Flonase Allergy Relief] 2 spray REYNA DAILY 07/05/19 [History] Acetaminophen [Tylenol] 650 mg PO TID PRN 08/24/19 [History] Aspirin [Adult Low Dose Aspirin EC] 81 mg PO DAILY 08/24/19 [History] Calcium Carbonate/Vitamin D3 [Calcium 500 + Vit D 200 Caplet] 1 each PO DAILY 08/24/19 [History] Glucosamine/D3/Boswellia [place]ara [Osteo Bi-Flex Caplet] 2 each PO DAILY 08/24/19 [History] Triamcinolone Acetonide [Triamcinolone Acetonide 0.1% Crm] 1 applic TOP TID PRN 08/24/19 [History] Hydrocodone/Acetaminophen [[place] 5-325 Tablet] 2 tab PO Q6H PRN 08/26/19 [History] Vitamin B Complex [B Complex] 1 each PO DAILY 08/26/19 [History] Furosemide 80 mg PO DAILY 05/08/20 [History] Warfarin [Coumadin] 5 mg PO ASDIRECTED 05/08/20 [History] Past Medical History HEENT History: Reports: Allergic Rhinitis, Cataract, Hard of Hearing, Impaired Vision Cardiovascular History: Reports: CAD, Hypertension, [place] Respiratory History: Reports: Sleep Apnea Gastrointestinal History: Reports: Colon Polyp, GERD Genitourinary History: Reports: None Musculoskeletal History: Reports: Arthritis, Fracture Other Musculoskeletal History: left humerus FX Neurological History: Reports: Neuropathy, Peripheral Psychiatric History: Reports: None Endocrine/Metabolic History: Reports: Obesity/BMI 30+ Hematologic History: Reports: Anticoagulation Therapy, Blood Transfusion(s) Immunologic History: Reports: None Oncologic (Cancer) History: Reports: Colon, Other (See Below) Other Oncologic History: rectal Dermatologic History: Reports: Eczema - Infectious Disease History Infectious Disease History: Reports: Chicken Pox, Measles, Mumps, Shingles - Past Surgical History HEENT Surgical History: Reports: Cataract Surgery, Tonsillectomy Cardiovascular Surgical History: Reports: Other (See Below) Other Cardiovascular Surgeries/Procedures: angioplasty GI Surgical History: Reports: Appendectomy, Colonoscopy, Esophageal Dilatation, Other (See Below) Other GI Surgeries/Procedures: rectal cancer 5 years ago with low rectal resection Endocrine Surgical History: Reports: None Musculoskeletal Surgical History: Reports: Hip Replacement, Knee Replacement, Other (See Below) Other Musculoskeletal Surgeries/Procedures:: bilateral hips Oncologic Surgical History: Reports: Other (See Below) Other Oncologic Surgeries/Procedures: rectal surgery Dermatological Surgical History: Reports: None Social & Family History - Caffeine Use Caffeine Use: Reports: Coffee Review of Systems - Review of Systems Review Of Systems: See Below Constitutional: Reports: No Symptoms Eyes: Reports: No Symptoms Ears: Reports: No Symptoms Nose: Reports: No Symptoms Mouth/Throat: Reports: No Symptoms Respiratory: Reports: No Symptoms Cardiovascular: Reports: No Symptoms GI/Abdominal: Reports: No Symptoms Genitourinary: Reports: No Symptoms Musculoskeletal: Reports: No Symptoms, Other (pt has pain on the anterior portion of the rt leg mid prtion) ED EXAM, GENERAL - Physical Exam Exam: See Below Free Text/Narrative:: pt arrived with swelling in the rt lower leg. He has noted around what appears to be a old ulcer area that he has tenderness. Exam Limited By: No Limitations General Appearance: Alert, Anxious, Moderate Distress Ears: Normal TMs Nose: Normal Inspection Throat/Mouth: Normal Inspection Head: Atraumatic Neck: Normal Inspection Respiratory/Chest: No Respiratory Distress Cardiovascular: Regular Rate, Rhythm Extremities: Other (pt had definite swellin the rt lower leg. He does not have calf tenderness. He has a healing ulcer mid portion anterion of the lower leg which is tender,. He is not tneder in the thigh area. ) Neurological: Alert, Oriented, Normal Cognition Course - Vital Signs Last Recorded V/S: Last Vital Signs Temp 37.2 C 05/08/20 12:24 Pulse 85 05/08/20 12:58 Resp 18 05/08/20 12:58 BP 113/67 05/08/20 12:58 Pulse Ox 94 L 05/08/20 12:58 - Orders/Labs/Meds Orders: Active Orders 24 hr Category Date Time Status Tibia Fibula Rt [CR] Stat Exams 05/08/20 12:03 Taken VL Duplex Lwr Ext Veins Ltd Rt [US] Stat Exams 05/08/20 12:39 Taken Labs: Laboratory Tests 05/08/20 05/08/20 05/08/20 Range/Units 12:05 12:05 12:05 WBC 3.0 L (4.5-11.0) K/uL RBC 4.34 (4.30-5.90) M/uL Hgb 13.7 (12.0-15.0) g/dL Hct 42.9 (40.0-54.0) % MCV 99 H (80-98) fL MCH 32 H (27-31) pg MCHC 32 (32-36) % Plt Count 162 (150-400) K/uL Neut % (Auto) 59 (36-66) % Lymph % (Auto) 32 (24-44) % [place] % (Auto) 8 H (2-6) % Eos % (Auto) 0 L (2-4) % Baso % (Auto) 1 (0-1) % PT 23.4 H (9.5-12.0) sec INR 2.18 H (0.80-1.20) Sodium 138 L (140-148) mmol/L Potassium 3.8 (3.6-5.2) mmol/L Chloride 102 (100-108) mmol/L Carbon Dioxide 30 (21-32) mmol/L Anion Gap 9.8 (5.0-14.0) mmol/L BUN 23 H (7-18) mg/dL Creatinine 1.4 H (0.8-1.3) mg/dL Est Cr Clr Drug Dosing 34.81 mL/min Estimated GFR (MDRD) 48 L (>60) Glucose 147 H (74-106) mg/dL Calcium 8.8 (8.5-10.1) mg/dL Total Bilirubin 0.4 (0.2-1.0) mg/dL AST 23 (15-37) U/L ALT 29 (12-78) U/L Alkaline Phosphatase 96 (46-116) U/L Total Protein 6.7 (6.4-8.2) g/dL Albumin 3.2 L (3.4-5.0) g/dL Globulin 3.5 (2.3-3.5) g/dL Albumin/Globulin Ratio 0.9 L (1.2-2.2) - Re-Assessments/Exams Free Text/Narrative Re-Assessment/Exam: 05/08/20 13:18 us of the leg was neg for clots. His wbc is low but is chronicly low. His INr waa therapeutic. Departure - Departure Time of Disposition: 13:19 Disposition: Home, Self-Care 01 Condition: Fair Clinical Impression: Infected ulcer of skin - Discharge Information Referrals: Storm Beckett MD [Primary Care Provider] - Forms: ED Department Discharge Care Plan Goals: inr is therapeutic, moist warm packs to the ulcer site, alow to dry with room air, keflex 500mg tid, appt with Dr Beckett on Thu or thursday. rtc if getting worse. Sepsis Event Note (ED) - Focused Exam Vital Signs: Vital Signs Temp Pulse Resp BP Pulse Ox 05/08/20 12:58 85 18 113/67 94 L 05/08/20 12:24 37.2 C 86 21 H 129/83 95 05/08/20 11:47 37.2 C 86 21 H 129/83 95 - My Orders Last 24 Hours: My Active Orders 05/08/20 12:03 Tibia Fibula Rt [CR] Stat 05/08/20 12:39 VL Duplex Lwr Ext Veins Ltd Rt [US] Stat - Assessment/Plan Last 24 Hours: My Active Orders 05/08/20 12:03 Tibia Fibula Rt [CR] Stat 05/08/20 12:39 VL Duplex Lwr Ext Veins Ltd Rt [US] Stat
[2020-05-08 12:58] VITALS: BP 113/67; PULSE 85
--- NOTE | 2020-05-08 13:16 | CR ---
Tibia Fibula Rt CLINICAL HISTORY: Ulcer lower leg FINDINGS: Two views show no evidence of fracture or bone destruction. No soft tissue abnormality is seen. Impression: No osseous lesion identified
--- NOTE | 2020-05-08 13:16 | US ---
VL Duplex Lwr Ext Veins Ltd Rt INDICATION: swelling and pain in rt leg. FINDINGS: Ultrasound examination of the lower extremity using Doppler and compressive technique demonstrates that the common femoral, femoral, and popliteal veins are patent, and compressible throughout. The calf veins were segmentally visualized and are negative where seen. IMPRESSION: Negative for deep venous thrombosis.
== END 2020-05-08 13:36 | disposition home or self-care (01) ==
LOC: JP.ED 11:32
DX: L97.219 Non-pressure chronic ulcer of right calf with unspecified severity (principal); I10 Essential (primary) hypertension; I25.2 Old myocardial infarction; I25.10 Atherosclerotic heart disease of native coronary artery without angina pectoris; K21.9 Gastro-esophageal reflux disease without esophagitis; E66.9 Obesity, unspecified; G62.9 Polyneuropathy, unspecified; Z79.82 Long term (current) use of aspirin; Z79.02 Long term (current) use of antithrombotics/antiplatelets; Z79.899 Other long term (current) drug therapy
CPT/HCPCS: 36415; 73590-26-RT; 73590-RT; 80053; 85025; 85610; 93971-26; 93971-RT; 99283; 99284-25